=== PATIENT | female | born 1960 | race Hispanic/Latino ===

== ENCOUNTER 2017-07-11 22:14 | Observation (INO) | payer MEDICARE ==
[~2017-07-11] VITALS: Ht 162.6 cm; Wt 125.2 kg
[2017-07-11 23:13] LABS: BASOPHILS # (AUTO) 0.1 (0.0-0.1); BASOPHILS % 0.8 % (0.0-1.0); EOSINOPHILS # (AUTO) 0.4 (0.0-0.4); EOSINOPHILS % 4.2 % (0.0-6.0); HEMATOCRIT 36.8 % (34.2-44.1); HEMOGLOBIN 11.9 g/dL (12.0-16.0); LYMPHOCYTES # (AUTO) 1.8 (1.0-3.2); LYMPHOCYTES % 21.5 % (18.0-39.1); MEAN CORPUSCULAR HEMOGLOBIN 29.2 pg (28-32); MEAN CORPUSCULAR HGB CONC 32.3 g/dL (31-35); MEAN CORPUSCULAR VOLUME 90.2 fL (81-99); MONOCYTES # (AUTO) 0.5 (0.2-0.8); MONOCYTES % 5.7 % (4.4-11.3); NEUTROPHILS # (AUTO) 5.7 (2.1-6.9); NEUTROPHILS % 67.4 % (38.7-80.0); PLATELET COUNT 241 x10e3/uL (140-360); RED BLOOD COUNT 4.08 x10e6/uL (3.6-5.1)
[2017-07-11 23:27] LABS: INR 2.22; PROTHROMBIN TIME 25.8 seconds (11.9-14.5)
[2017-07-11 23:28] LABS: PARTIAL THROMBOPLASTIN TIME 42.5 seconds (23.8-35.5)
--- NOTE | 2017-07-11 23:30 | Diagnostic Imaging Report ---
EXAM: CHEST SINGLE (NOT PORTABLE), AP 1 view DATE: 07/11/2017 10:48 PM Time stamp on exam: 2313 hours INDICATION: Dialysis catheter replaced earlier today COMPARISON: There is a right internal jugular vein tunneled hemodialysis catheter with tip projected over the proximal right atrium. FINDINGS: LINES/TUBES: None LUNGS: No consolidations or edema. PLEURA: No effusions or pneumothorax. HEART AND MEDIASTINUM: Mild cardiac enlargement and vascular congestion. BONES AND SOFT TISSUES: No acute findings. IMPRESSION: Mild cardiac enlargement and vascular congestion. Signed by: Dr. Breanna Grimm M.D. on 07/11/2017 11:26 PM
[2017-07-11 23:32] LABS: ALBUMIN 3.6 g/dL (3.5-5.0); ALBUMIN/GLOBULIN RATIO 0.8 (0.8-2.0); ANION GAP 21.2 mmol/L (8-16); CALCIUM 9.9 mg/dL (8.4-10.2); CREATININE, SERUM 5.69 mg/dL (0.57-1.11); POTASSIUM 3.2 mmol/L (3.5-5.1)
[2017-07-12] MEDS ORDERED: SODIUM CHLORIDE FLUSH 10 ML SYR INJ PRN (02:45)
[2017-07-12] MEDS ORDERED: DEXTROSE 50% SYRINGE 50 ML IV PRN (04:00)
[2017-07-12 04:57] VITALS: BP 169/84
[2017-07-12 05:03] VITALS: BP 169/84
[2017-07-12] MEDS ORDERED: LEVEMIR100 UNIT/1 ×2 (05:06→05:07)
[2017-07-12] MEDS ORDERED: MONTELUKAST SOD10 MG PO (05:07)
[2017-07-12] MEDS ORDERED: SERTRALINE HCL50 MG PO (05:08)
[2017-07-12] MEDS ORDERED: TRAZODONE HCL50 MG PO (05:11)
[2017-07-12] MEDS ORDERED: COUMADIN2.5 MG PO (05:15)
[2017-07-12] MEDS ORDERED: COUMADIN2 MG PO (05:15)
[2017-07-12] MEDS ORDERED: PROVENTIL HFA6.7 GM IH (05:17)
[2017-07-12 05:18] VITALS: BP 137/78
[2017-07-12] MEDS ORDERED: AMIODARONE HCL200 MG (05:18)
[2017-07-12] MEDS ORDERED: CARVEDILOL12.5 MG PO (05:19)
[2017-07-12] MEDS ORDERED: CLOTRIMAZOLE15 GM TOP (05:20)
[2017-07-12] MEDS ORDERED: [UNRECOGNIZED DRUG - OTHER] NS (05:24)
[2017-07-12] MEDS ORDERED: SODIUM CHLORIDE 0.9% 250ML 250 ML ONE (05:46)
[2017-07-12 08:12] VITALS: BP 123/77
[2017-07-12] MEDS: INSULIN REGULAR, HUMAN 100 UNIT/1 ML 3ML VIAL SQ SCH ×2 (08:44→12:48)
--- NOTE | 2017-07-12 08:58 | Consultation ---
DATE OF CONSULTATION: July 12, 2017 NEPHROLOGY CONSULTATION REASON FOR CONSULTATION: End-stage renal disease. This is a very pleasant, 56-year-old female with hypertension, diabetes, AFib, and end-stage renal disease who started dialysis in March 2017 at [facility] when she was admitted with hyperkalemia. She then went to [facility] under Dr. Mahoney. Then she requested transfer to [place] where she now follows with Dr. Briggs. She dialyses every Friday, Friday, and Friday. Her catheter has been clotting recently. Yesterday, on Friday, on her treatment 1 hour through, she clotted, so she was referred to [facility] to get it exchanged. They exchanged the catheter. Since then, she has been bleeding from the catheter. She takes Coumadin. INR is 2.2 on admission to the ER. The patient is being under observation, and we are consulted to manage dialysis as an inpatient. PAST MEDICAL HISTORY: As mentioned above. PAST SURGICAL HISTORY 1. Status post AV fistula. 2. Status post cholecystectomy and appendectomy. ALLERGIES: CODEINE AND PIOGLITAZONE. FAMILY HISTORY: Hypertension and diabetes. SOCIAL HISTORY: No smoking, alcohol or IV drug abuse. PHYSICAL EXAMINATION VITALS: Blood pressure 137/78, heart rate 70, temperature 96.6. GENERAL APPEARANCE: In no acute distress. HEAD, EARS, EYES, NECK: No lymphadenopathy. HEART: Regular rate and rhythm. LUNGS: Good bilateral air entry. ABDOMEN: Soft, nontender. EXTREMITIES: Trace edema. LABS: Potassium was 3.2 yesterday and hemoglobin 11.9. ASSESSMENT AND PLAN 1. End-stage renal disease on hemodialysis every Friday, Friday and Friday. Yesterday's session was interrupted due to malfunctioning access. We are going to dialyze short session again today and resume Friday, Friday and Friday next week. 2. Bleeding from the tunneled catheter. Her INR was 2.2. She was still taking Coumadin on her procedure day, so she is having a pressure dressing. Also, she got 1 unit of FFP overnight at the ER. Monitor closely. It seems that the bleeding has stopped. Keep the pressure dressing. Will change the dressing by the dialysis nurse. She is under observation. 3. Anemia of chronic disease. Epogen if hemoglobin is less than 10. 4. Blood pressure is acceptable. 5. Atrial fibrillation, rate controlled. 6. Diabetes. Monitor on insulin. 7. Volume status. Adjust as tolerated. 8. Electrolytes. Adjust and increase potassium given the patient's persistent hypokalemia now being on dialysis. Potassium was 3.2 yesterday. We are going to recheck. Thank you for the consult. We will update the primary team for further recommendations. Job#: [id number]
[2017-07-12 10:35] LABS: ANION GAP 18.1 mmol/L (8-16); CALCIUM 9.1 mg/dL (8.4-10.2); CREATININE, SERUM 5.8 mg/dL (0.57-1.11); POTASSIUM 3.1 mmol/L (3.5-5.1)
[2017-07-12 12:00] VITALS: BP 150/72
[2017-07-12] MEDS ORDERED: POTASSIUM CHLORIDE 20 MEQ TAB CR PO ONE (12:00)
--- NOTE | 2017-07-12 15:42 | History and Physical ---
CHIEF COMPLAINT: Patient was admitted from the emergency room on my service because she started having bleeding from her subclavian catheter, which was recently placed. HPI: Ms. Magana is a 56-year-old female with a history of hypertension, diabetes, AFib, end-stage renal disease on dialysis since March 2017. Her regular loss control consultant is Dr. Briggs. She dialyzes every Friday, Friday and Friday. Her catheter was clotting recently, and she got it changed at [facility]. They exchanged the catheter, but the patient was taking Coumadin. INR was 2.2 on admission. The patient started having oozing and bleeding from the catheter site persistently despite pressure bandage, so she was admitted and FFP was given. REVIEW OF SYSTEMS GENERAL: Denies any fever or chills. HEAD: Denies any head trauma or head injury. ENT: Denies any earache, nosebleed or throat pain. CVS: Denies any chest pain. RESPIRATORY: Denies any shortness of breath. OTHER: The rest of the review of systems is negative except as in HPI. PAST MEDICAL HISTORY 1. Diabetes. 2. Hypertension. 3. AFib. 4. End-stage renal disease. PAST SURGICAL HISTORY 1. Status post AV fistula. 2. Cholecystectomy. 3. Appendectomy. 4. History of Chiari malformation surgery in remote past. FAMILY HISTORY: Hypertension. SOCIAL HISTORY: Does not smoke and does not drink. PHYSICAL EXAMINATION VITAL SIGNS: Temperature 96.9, pulse 70, blood pressure 150/72, respiratory rate 18, O2 sat 96% on room air. SKIN: Warm and dry. GENERAL APPEARANCE: Young female not in any obvious distress. She is awake, alert and following commands. Responding to questions appropriately. HEENT: Head is atraumatic and normocephalic. Pupils are reactive. NECK: Supple. CHEST: Clear to auscultation bilaterally. ABDOMEN: Soft, nontender. EXTREMITIES: No clubbing, cyanosis or edema. NEURO: Awake, alert. LABS: White count 8.3, hemoglobin 11.9, platelets 241. INR is 2.22. Chemistry: Sodium 139, potassium 3.91, chloride 95, BUN 59, creatinine 5.8. Chest x-ray was done in the emergency room, which is showing mild cardiac enlargement but no other abnormality. ASSESSMENT/PLAN: Carmen Magana is a 56-year-old female who had dialysis catheter site bleeding. Patient has been stable. Bleeding has stopped. She has received a unit of fresh frozen plasma. CURRENT PROBLEMS 1. Bleeding from the dialysis catheter site. 2. End-stage renal disease. 3. Hypertension. 4. Diabetes. PLAN 1. Bleeding has stopped. I will discharge the patient if okay with nephrology. 2. Hemodialysis per nephrology. 3. Nephrology consult. Job#: [id number]
== END 2017-07-12 15:47 | disposition home or self-care (01) ==
LOC: ER 22:14 → ERHOLD 07-12 02:54 → IMCU 07-12 04:06
PROVIDERS: ADMIT Internal Medicine; ATTEND Internal Medicine
DX: T82.838A Hemorrhage due to vascular prosthetic devices, implants and grafts, initial encounter (principal); Y84.1 Kidney dialysis as the cause of abnormal reaction of the patient, or of later complication, without mention of misadventure at the time of the procedure; Y92.009 Unspecified place in unspecified non-institutional (private) residence as the place of occurrence of the external cause; E11.22 Type 2 diabetes mellitus with diabetic chronic kidney disease; I12.0 Hypertensive chronic kidney disease with stage 5 chronic kidney disease or end stage renal disease; N18.6 End stage renal disease; Z79.4 Long term (current) use of insulin; Z99.2 Dependence on renal dialysis; D63.8 Anemia in other chronic diseases classified elsewhere; E87.6 Hypokalemia; I48.91 Unspecified atrial fibrillation; Z79.01 Long term (current) use of anticoagulants
CPT/HCPCS: 36415 ×2; 36430; 71010; 80048; 80053; 82948; 85025; 85610; 85730; 86850; 86900; 99284; G0378; J7050; P9017

== ENCOUNTER 2017-08-29 11:00 | Emergency (ER) | payer MEDICARE ==
[~2017-08-29] VITALS: Ht 162.6 cm; Wt 124.7 kg
[~2017-08-29 11:00] MED LIST: AMIODARONE HCL200 MG; CARVEDILOL12.5 MG PO; CLOTRIMAZOLE15 GM TOP; COUMADIN2 MG PO; COUMADIN2.5 MG PO; LEVEMIR100 UNIT/1; MONTELUKAST SOD10 MG PO; PROVENTIL HFA6.7 GM IH; SERTRALINE HCL50 MG PO; TRAZODONE HCL50 MG PO; [UNRECOGNIZED DRUG - OTHER] NS
--- OUTSIDE RECORDS SUMMARY | 2017-08-29 11:02 | XMS REPORT ---
Author Author [facility] Address Unknown Phone Unavailable Care Team Providers Care Registered Sales Assistant Name Role Phone PARAM MENA Unavailable Unavailable Problems This patient has no known problems. Allergies, Adverse Reactions, Alerts This patient has no known allergies or adverse reactions. Medications This patient has no known medications. Results Test Description Test Time Test Comments Text Results Atomic Results Result Comments CHEST SINGLE (NOT PORTABLE) [place] [id number] Patient Name: RENETTA MEDINA MR #: [id number] : 1960 Age/Sex: 56/F Req #: [id number] Adm Physician: Ordered by: PARAM MENA MD Report #: [id number] Location: ER Room/Bed: Procedure: [id number] DX/CHEST SINGLE (NOT PORTABLE) Exam Date: 07/11/17 Exam Time: 2305 REPORT STATUS: Signed EXAM: CHEST SINGLE (NOT PORTABLE), AP 1 view DATE: 07/11/2017 10:48 PM Time stamp on exam : 2313 hours INDICATION: Dialysis catheter replaced earlier today COMPARISON : There is a right internal jugular vein tunneled hemodialysis catheter with tip projected over the proximal right atrium. FINDINGS: LINES/TUBES: None LUNGS: No consolidations or edema. PLEURA: No effusions or pneumothorax. HEART AND MEDIASTINUM: Mild cardiac enlargement and vascular congestion. BONES AND SOFT TISSUES: No acute findings. IMPRESSION: Mild cardiac enlargement and vascular congestion. Signed by: Dr. April Murphy M.D. on 07/11/2017 11:26 PM Dictated By: APRIL MURPHY MD 25 Transcribed By: BRITTON on 07/11/172325 COPY TO: PARAM MENA MD
[2017-08-29 13:01] LABS: BASOPHILS # (AUTO) 0.1 (0.0-0.1); BASOPHILS % 0.7 % (0.0-1.0); EOSINOPHILS # (AUTO) 0.3 (0.0-0.4); EOSINOPHILS % 3.6 % (0.0-6.0); HEMOGLOBIN 10.7 g/dL (12.0-16.0); LYMPHOCYTES # (AUTO) 1.3 (1.0-3.2); MEAN CORPUSCULAR HGB CONC 32.4 g/dL (31-35); MEAN CORPUSCULAR VOLUME 89.4 fL (81-99); MONOCYTES # (AUTO) 0.5 (0.2-0.8); NEUTROPHILS # (AUTO) 6.2 (2.1-6.9); NEUTROPHILS % 73.5 % (38.7-80.0); PLATELET COUNT 227 x10e3/uL (140-360); RED BLOOD COUNT 3.69 x10e6/uL (3.6-5.1); RED CELL DISTRIBUTION WIDTH 14.5 % (11.7-14.4)
[2017-08-29 13:09] LABS: INR 2.63; PROTHROMBIN TIME 26.4 seconds (11.9-14.5)
[2017-08-29 13:10] LABS: PARTIAL THROMBOPLASTIN TIME 53.7 seconds (23.8-35.5)
[2017-08-29 13:21] LABS: ALBUMIN 3.3 g/dL (3.5-5.0); ALBUMIN/GLOBULIN RATIO 0.8 (0.8-2.0); ANION GAP 19.5 mmol/L (8-16); CALCIUM 8.8 mg/dL (8.4-10.2); CREATININE, SERUM 6.81 mg/dL (0.57-1.11); POTASSIUM 3.5 mmol/L (3.5-5.1)
[2017-08-29 13:46] VITALS: BP 190/82
== END 2017-08-29 13:55 | disposition home or self-care (01) ==
LOC: ER 11:00
DX: D68.9 Coagulation defect, unspecified (principal); I12.0 Hypertensive chronic kidney disease with stage 5 chronic kidney disease or end stage renal disease; N18.6 End stage renal disease; Z99.2 Dependence on renal dialysis; I51.9 Heart disease, unspecified
CPT/HCPCS: 36415; 80053; 85025; 85610; 85730; 99283

== ENCOUNTER → 2018-03-17 | Day surgery (SDC) | payer MEDICARE, OTHER ==
[~2018-03-17] VITALS: Ht 162.6 cm; Wt 122.5 kg
[~2018-03-17] MED LIST changes: +ACETAMINOPHEN325 M1 PO; -AMIODARONE HCL200 MG; +AMIODARONE HCL200 MG PO; +ATORVASTATIN CA20 MG PO; +BENZOCAINE 20% SPR 60 ML CAN ONE; -LEVEMIR100 UNIT/1; +LEVEMIR100 UNIT/1 SQ; +LIDOCAINE HCL 2% LOCAL INJ 5 ML SDV VIAL INJ ONE; +MIDAZOLAM HCL 2 MG/2 ML VIAL ONE; +NEPHRO-VITE TABL1 EA PO; +POLYETHYLENE GL17 GM PO; +PROPOFOL IV EMULSION 10 MG/ML 20 ML VIAL ONE; +RENVELA PO; +RENVELA800 MG PO; +SODIUM CHLORIDE 0.9% 1000ML 1,000 ML ONE
[2018-03-17 09:15] VITALS: BP 150/80
[2018-03-17 11:15] VITALS: BP 142/79
[2018-03-17 11:30] VITALS: BP 142/85
[2018-03-17 11:45] VITALS: BP 159/77
[2018-03-17 12:00] VITALS: BP 152/77
== END | disposition home or self-care (01) ==
LOC: CATH LAB 08:45 → EDSTATUS 10:30
PROVIDERS: ATTEND Internal Medicine Interventional Cardiology
DX: I48.2 Chronic atrial fibrillation (principal); E11.22 Type 2 diabetes mellitus with diabetic chronic kidney disease; I12.0 Hypertensive chronic kidney disease with stage 5 chronic kidney disease or end stage renal disease; N18.6 End stage renal disease; J44.9 Chronic obstructive pulmonary disease, unspecified; G47.33 Obstructive sleep apnea (adult) (pediatric); R53.1 Weakness; Z88.6 Allergy status to analgesic agent; Z88.8 Allergy status to other drugs, medicaments and biological substances; Z79.01 Long term (current) use of anticoagulants; Z79.4 Long term (current) use of insulin; Z99.2 Dependence on renal dialysis; Z68.42 Body mass index [BMI] 45.0-49.9, adult
CPT/HCPCS: 36415; 82948; 93312; 93320; 93325; J2001; J2250; J7030

== ENCOUNTER 2018-09-05 17:30 | Inpatient (IN) | payer MEDICARE, OTHER ==
[~2018-09-05] VITALS: Ht 162.6 cm; Wt 108.9 kg
[~2018-09-05 17:30] MED LIST changes: -BENZOCAINE 20% SPR 60 ML CAN ONE; -LIDOCAINE HCL 2% LOCAL INJ 5 ML SDV VIAL INJ ONE; -MIDAZOLAM HCL 2 MG/2 ML VIAL ONE; -PROPOFOL IV EMULSION 10 MG/ML 20 ML VIAL ONE; -SODIUM CHLORIDE 0.9% 1000ML 1,000 ML ONE
[2018-09-05] MEDS ORDERED: SODIUM CHLORIDE 0.9% 250ML 250 ML IV ONE (17:45)
[2018-09-05] MEDS ORDERED: VANCOMYCIN 1GM/NS 250 ML 250 ML IV STA (17:47)
[2018-09-05] MEDS ORDERED: CEFEPIME 2 GM/NS 0.9% 100 ML 100 ML IV NR (18:00)
--- NOTE | 2018-09-05 18:30 | NUR ---
REC'D PT VIA EMS FROM [facility] FOR MULTIPLE COMPLAINTS. RIGHT CHEST DIALYSIS PORT RECENTLY PLACED AND HAS HAD FEVER, STOUT, BACK PAIN SINCE. WOUND TO SACRUM--UNSTAGEABLE WITH TUNNELING/PACKING. PLACED ON THE MONITOR. EKG DONE. BED LOW/LOCKED AND HAS CALL CRUZ IN HAND.
--- NOTE | 2018-09-05 18:51 | Diagnostic Imaging Report ---
EXAMINATION: CHEST SINGLE (PORTABLE) COMPARISON: Chest x-ray 07/11/2017 INDICATION: ^FEVER ^[id number] ^1820 DISCUSSION: Frontal view of the chest obtained at 1822 hours. HEART AND MEDIASTINUM: Stable cardiomegaly. Prosthetic cardiac valve ring has been applied. LINES: Dual lumen central venous catheter terminates in the SVC LUNGS: Widespread alveolar airspace opacities with prominent pulmonary vasculature. Minimal interstitial thickening. PLEURA: Small left pleural effusion. No pneumothorax. BONES AND SOFT TISSUES: Median sternotomy wires are intact. No focal osseous lesion. The soft tissues are normal. IMPRESSION: Cardiomegaly and pulmonary vascular congestion with alveolar edema. Small left pleural effusion. Postoperative changes of the mediastinum with placement of cardiac valve. Signed by: Dr. Fabby Sim MD on 09/05/2018 6:48 PM
[2018-09-05] MEDS ORDERED: DILTIAZEM HCL 5 MG/ML 5 ML VIAL IV NR (18:52)
[2018-09-05 20:02] LABS: BASOPHILS # (AUTO) 0.1 (0.0-0.1); BASOPHILS % 0.5 % (0.0-1.0); EOSINOPHILS # (AUTO) 0.1 (0.0-0.4); EOSINOPHILS % 0.7 % (0.0-6.0); HEMATOCRIT 31.1 % (34.2-44.1); HEMOGLOBIN 9.1 g/dL (12.0-16.0); LYMPHOCYTES # (AUTO) 1.2 (1.0-3.2); LYMPHOCYTES % 11.7 % (18.0-39.1); MEAN CORPUSCULAR HEMOGLOBIN 29.1 pg (28-32); MEAN CORPUSCULAR HGB CONC 29.3 g/dL (31-35); MEAN CORPUSCULAR VOLUME 99.4 fL (81-99); MONOCYTES # (AUTO) 0.5 (0.2-0.8); MONOCYTES % 4.7 % (4.4-11.3); NEUTROPHILS # (AUTO) 8.6 (2.1-6.9); NEUTROPHILS % 82.1 % (38.7-80.0); PLATELET COUNT 219 x10e3/uL (140-360); RED BLOOD COUNT 3.13 x10e6/uL (3.6-5.1); RED CELL DISTRIBUTION WIDTH 18.4 % (11.7-14.4)
[2018-09-05 20:14] LABS: INR 1.4; PROTHROMBIN TIME 17.7 seconds (11.9-14.5)
[2018-09-05 20:15] LABS: PARTIAL THROMBOPLASTIN TIME 43.9 seconds (23.8-35.5)
[2018-09-05 20:28] LABS: ALBUMIN 2.6 g/dL (3.5-5.0); ALBUMIN/GLOBULIN RATIO 0.6 (0.8-2.0); ANION GAP 15.8 mmol/L (8-16); CALCIUM 9.8 mg/dL (8.4-10.2); CREATININE, SERUM 5.9 mg/dL (0.57-1.11); MAGNESIUM 1.8 MG/DL (1.3-2.1); POTASSIUM 3.8 mmol/L (3.5-5.1)
[2018-09-05 20:30] LABS: CREATINE KINASE MB 0.4 ng/mL (0-5.0)
[2018-09-05 20:33] LABS: B-TYPE NATRIURETIC PEPTIDE2 515.7 pg/mL (0-100)
[2018-09-05] MEDS ORDERED: METOPROLOL TART25 MG PO (22:05)
[2018-09-05] MEDS ORDERED: CYCLOBENZAPRINE5 MG PO (22:05)
[2018-09-05] MEDS ORDERED: COLLAGENASE1 EACH (22:05)
[2018-09-05] MEDS ORDERED: PANTOPRAZOLE SO40 MG PO (22:05)
[2018-09-05] MEDS ORDERED: ZOFRAN4 MG PO (22:05)
[2018-09-05] MEDS ORDERED: SERTRALINE HCL100 MG PO (22:05)
[2018-09-05] MEDS ORDERED: MIDODRINE HCL2.5 MG PO (22:05)
[2018-09-05] MEDS ORDERED: ULTRAM50 MG PO (22:05)
--- NOTE | 2018-09-05 22:11 | NUR ---
HOME MEDS UPDATED IN THE COMPUTER
--- NOTE | 2018-09-05 22:45 | NUR ---
PT LOVE. INFORMED, UA/UC CANCELLED.
--- NOTE | 2018-09-05 22:59 | NUR ---
PT MOVED TO HOSPITAL BEDFOR COMFORT. PT REPOSITIONED ONTO R SIDE. Addendum: 09/05/18 at 2259 by PARUL PT MOVED TO HOSPITAL BED FOR COMFORT. PT REPOSITIONED ONTO R SIDE.
[2018-09-05] MEDS: TRAMADOL HCL 50 MG TAB PO PRN (23:07)
--- NOTE | 2018-09-06 00:15 | NUR ---
TO ROOM TO PERFORM MN VS. PT NOTED C FEVER. BLANKET REMOVED. DR AMEZCUA INFORMED OF FEVER 101.3 ORALLY. TYLENOL ORDERED.
[2018-09-06] MEDS: ACETAMINOPHEN 325 MG TAB PO PRN ×3 (00:31→21:14)
[2018-09-06] MEDS: AMIODARONE HCL 200 MG TAB PO SCH ×2 (03:14→08:41)
[2018-09-06] MEDS ORDERED: AMIODARONE HCL 200 MG TAB PO ONE (03:15)
[2018-09-06] MEDS ORDERED: CEFEPIME 2 GM/NS 0.9% 100 ML 100 ML IV SCH ×2 (04:15→20:30)
[2018-09-06] MEDS ORDERED: VANCOMYCIN 1GM/NS 250 ML 250 ML IV SCH ×2 (04:15→21:00)
[2018-09-06 06:08] LABS: BASOPHILS % 0.5 % (0.0-1.0); EOSINOPHILS # (AUTO) 0.1 (0.0-0.4); EOSINOPHILS % 1.1 % (0.0-6.0); HEMATOCRIT 28.5 % (34.2-44.1); HEMOGLOBIN 8.5 g/dL (12.0-16.0); LYMPHOCYTES # (AUTO) 1.1 (1.0-3.2); LYMPHOCYTES % 12.4 % (18.0-39.1); MEAN CORPUSCULAR HEMOGLOBIN 29.4 pg (28-32); MEAN CORPUSCULAR HGB CONC 29.8 g/dL (31-35); MEAN CORPUSCULAR VOLUME 98.6 fL (81-99); MONOCYTES # (AUTO) 0.4 (0.2-0.8); MONOCYTES % 4.1 % (4.4-11.3); NEUTROPHILS # (AUTO) 7.1 (2.1-6.9); NEUTROPHILS % 81.4 % (38.7-80.0); PLATELET COUNT 191 x10e3/uL (140-360); RED BLOOD COUNT 2.89 x10e6/uL (3.6-5.1); RED CELL DISTRIBUTION WIDTH 18.2 % (11.7-14.4)
[2018-09-06 06:28] LABS: ALBUMIN 2.4 g/dL (3.5-5.0); ALBUMIN/GLOBULIN RATIO 0.6 (0.8-2.0); ANION GAP 13.6 mmol/L (8-16); CALCIUM 9.5 mg/dL (8.4-10.2); CREATININE, SERUM 6.46 mg/dL (0.57-1.11); POTASSIUM 3.6 mmol/L (3.5-5.1)
--- NOTE | 2018-09-06 07:15 | NUR ---
ASSUMED CARE AT THIS TIME. PATIENT LAYING IN BED WITH EYES CLOSED,EASILY ARROUSABLE TO VERBAL STIMULI. RESP EVEN AND UNLABORED. SKIN WARM AND DRY. NO SIGNS OF ACUTE DISTRESS NOTED AT THIS TIME. DENIES ANY C/O AT THIS TIME.
[2018-09-06] MEDS: TRAMADOL HCL 50 MG TAB PO PRN ×2 (08:41→21:29)
[2018-09-06] MEDS ORDERED: METOPROLOL TARTRATE 25 MG TAB PO SCH (09:00)
--- NOTE | 2018-09-06 09:40 | NUR ---
PATIENT REPOSITIONED TO RIGHT LATERAL, TOLERATED WELL. BLANKETS REMOVED, C/O FLUSHING, SKIN HOT AND DRY. T 101.9,EDUCATED PATIENT ON TYLENOL SCHEDULE,VERBALIZED UNDERSTANDING. NO SIGNS OF ACUTE DISTRESS NOTED AT THIS TIME.
--- NOTE | 2018-09-06 11:23 | NUR ---
VERBAL REPORT GIVEN TO GLENN HAWKINS.
[2018-09-06] MEDS ORDERED: METOPROLOL TARTRATE INJ 1 MG/ML VIAL IV PRN (12:15)
[2018-09-06] MEDS ORDERED: DEXTROSE 50% SYRINGE 50 ML IV PRN (12:15)
[2018-09-06] MEDS ORDERED: ACETAMINOPHEN 325 MG TAB PO PRN (12:15)
[2018-09-06] MEDS: WARFARIN SOD 3 MG TAB PO SCH (16:53)
[2018-09-06] MEDS: METOPROLOL TARTRATE 25 MG TAB PO SCH (16:53)
[2018-09-06] MEDS: SEVELAMER CARBONATE 800 MG TAB PO SCH (16:53)
[2018-09-06] MEDS: INSULIN REGULAR, HUMAN 100 UNIT/1 ML 3ML VIAL SQ SCH ×2 (17:22→21:00)
[2018-09-06 19:57] VITALS: BP 97/60
[2018-09-06] MEDS ORDERED: SODIUM CHLORIDE 0.9% 250ML 250 ML ONE (20:13)
[2018-09-06 20:14] VITALS: BP 97/60
[2018-09-06] MEDS: ATORVASTATIN 40 MG TAB PO SCH (21:15)
[2018-09-06] MEDS: MONTELUKAST SODIUM 10 MG TAB PO SCH (21:15)
--- NOTE | 2018-09-06 22:41 | NUR ---
FELICE CALLED TO PLACE PATIENT ON HEMODIALYSIS FOR FRIDAY.
[2018-09-07] VITALS: BP 123/57
--- NOTE | 2018-09-07 02:51 | Consultation ---
DATE OF CONSULTATION: 09/06/2018 Pulmonary Critical Care Consultation CHIEF COMPLAINT: Fever. HISTORY OF PRESENT ILLNESS: The patient is a 57-year-old woman. She has a history of diabetes and hypertension. She has end-stage renal failure and has been on dialysis for about a year. In March of last year, she required hospitalization for 2-1/2 months for methicillin-resistant Staphylococcus aureus endocarditis. She required open heart surgery and prolonged antibiotics. The patient has been staying at a nursing facility. She had her dialysis catheter changed on . She subsequently developed fevers. She denies any cough or congestion. She has no dyspnea. She denies abdominal pain. No nausea or vomiting. PAST SURGICAL HISTORY: 1. Status post repair of Chiari malformation 10 years ago. 2. Status post heart surgery for endocarditis. 3. Status post AV fistula placement. 4. Status post cholecystectomy. 5. Status post appendectomy. PAST MEDICAL HISTORY: 1. End-stage renal disease. 2. Diabetes. 3. Hypertension. 4. Atrial fibrillation. SOCIAL HISTORY: The patient is not a smoker. She is not a drinker. FAMILY HISTORY: Family history is significant for hypertension. ALLERGIES: THE PATIENT IS ALLERGIC TO CODEINE. REVIEW OF SYSTEMS: The patient reports fevers at home. She has no headache. She is not having any neck pain. She has no sore throat. She is not complaining of chest pain. She has minimal cough. She has no dyspnea. She is not complaining of any abdominal pain. There is no nausea or vomiting. She has no leg edema. PHYSICAL EXAMINATION: VITAL SIGNS: The patient is afebrile. The blood pressure is 103/54 and the heart rate is 112. The T-max is 101.9. HEENT: Shows no facial swelling or erythema. Nasal mucosa is normal. The oropharynx is normal. LYMPHATIC: Shows no submandibular, cervical, or supraclavicular adenopathy. CARDIAC: Reveals regular rate and rhythm with normal S1 and S2. There are no murmurs or rubs. LUNGS: Auscultation of lungs reveal clear breath sounds bilaterally. There is no wheezing. ABDOMEN: Soft, nontender. There is no rebound or guarding. EXTREMITIES: Examination of extremities show no leg edema or calf tenderness. LABORATORY DATA: The white blood cell count is 8.7 and hemoglobin is 8.5. The platelet count is 191. The BUN to creatinine ratio is elevated. The sodium is 129. IMPRESSION: 1. Fever of unclear etiology. 2. History of methicillin-resistant Staphylococcus aureus endocarditis. 3. End-stage renal disease. 4. Atrial fibrillation. 5. Diabetes. 6. Hypertension. PLAN: 1. The patient received vancomycin. She is also receiving ceftazidime. 2. Await blood culture results. 3. Nasal swab for influenza. 4. Nasal swab for MRSA. 5. Continue dialysis as needed. Manan Wallace MD [facility]/MOD[facility] /[id number]
[2018-09-07 04:17] VITALS: BP 122/60
[2018-09-07 06:58] LABS: BASOPHILS # (AUTO) 0.1 (0.0-0.1); BASOPHILS % 0.6 % (0.0-1.0); EOSINOPHILS # (AUTO) 0.4 (0.0-0.4); EOSINOPHILS % 4.5 % (0.0-6.0); HEMATOCRIT 27.8 % (34.2-44.1); HEMOGLOBIN 8.3 g/dL (12.0-16.0); LYMPHOCYTES # (AUTO) 0.9 (1.0-3.2); LYMPHOCYTES % 10.5 % (18.0-39.1); MEAN CORPUSCULAR HEMOGLOBIN 29.1 pg (28-32); MEAN CORPUSCULAR HGB CONC 29.9 g/dL (31-35); MEAN CORPUSCULAR VOLUME 97.5 fL (81-99); MONOCYTES # (AUTO) 0.4 (0.2-0.8); MONOCYTES % 5.1 % (4.4-11.3); NEUTROPHILS # (AUTO) 6.5 (2.1-6.9); NEUTROPHILS % 79.1 % (38.7-80.0); PLATELET COUNT 191 x10e3/uL (140-360); RED BLOOD COUNT 2.85 x10e6/uL (3.6-5.1); RED CELL DISTRIBUTION WIDTH 17.7 % (11.7-14.4)
[2018-09-07 07:15] LABS: INR 1.57; PROTHROMBIN TIME 19.4 seconds (11.9-14.5)
[2018-09-07 07:19] LABS: ANION GAP 18.4 mmol/L (8-16); CALCIUM 9.7 mg/dL (8.4-10.2); CREATININE, SERUM 7.85 mg/dL (0.57-1.11); POTASSIUM 4.4 mmol/L (3.5-5.1)
[2018-09-07] MEDS: INSULIN REGULAR, HUMAN 100 UNIT/1 ML 3ML VIAL SQ SCH ×4 (07:30→22:09)
[2018-09-07 07:45] LABS: THYROID STIMULATING HORMONE 3.552 uIU/mL (0.350-4.940)
[2018-09-07 07:55] VITALS: BP 103/62
[2018-09-07 08:00] VITALS: BP 103/62
[2018-09-07] MEDS: POLYETHYLENE GLYCOL 3350 17 GM PACK PO SCH (09:00)
[2018-09-07] MEDS ORDERED: SERTRALINE HCL 50 MG TAB PO SCH (09:00)
[2018-09-07] MEDS: METOPROLOL TARTRATE 25 MG TAB PO SCH ×2 (09:00→18:14)
[2018-09-07] MEDS: PANTOPRAZOLE SOD 40 MG TABEC PO SCH (09:14)
[2018-09-07] MEDS: SEVELAMER CARBONATE 800 MG TAB PO SCH ×3 (09:15→18:14)
[2018-09-07] MEDS: AMIODARONE HCL 200 MG TAB PO SCH (09:15)
[2018-09-07] MEDS: FOLIC ACID/CYANOCOB/PYRIDOXINE TAB PO SCH (09:16)
[2018-09-07] MEDS: TRAMADOL HCL 50 MG TAB PO PRN ×2 (09:23→18:15)
[2018-09-07] MEDS ORDERED: SODIUM CHLORIDE 0.9% 250ML 500 ML IV PRN (13:45)
[2018-09-07] MEDS ORDERED: SODIUM CHLORIDE 0.9% 1000ML 2,000 ML IV PRN (13:45)
[2018-09-07] MEDS ORDERED: HEPARIN SOD (PORCINE) 1000 UNIT/ML SDV IV PRN (13:45)
--- NOTE | 2018-09-07 14:45 | NUR ---
CM SPOKE TO PATIENT AT BEDSIDE REGARDING IMM LETTER. IMM LETTER GIVEN WITH EXPLANATION. ORIGINAL SIGNED AND PLACED IN CHART; COPY OF ORIGINAL DOCUMENT GIVEN TO PATIENT AT BEDSIDE AND PLACED IN CARE TRANSITION FOLDER. CM CONTACT INFORMATION GIVEN TO PATIENT FOR ANY NEEDS OR CONCERNS. PATIENT WITH NO FURTHER QUESTIONS.
[2018-09-07 16:00] VITALS: BP 119/63
--- NOTE | 2018-09-07 16:30 | NUR ---
WOUND CARE CONSULTATION - INITIAL EVALUATION Patient admitted from correction to ER for onset of fever. SX HX: Chiari malformation Repair, Heart surgery for endocarditis, AV fistula placement, cholecystectomy, appendectomy. HX: End-stage renal disease, Diabetes, Hypertension, Atrial fibrillation. Urban Score 18 Alternate Pressure Air Mattress in Place Moderate PUP Active. LABS: WBC8.19 HGB8.3 NEUT%79.1 GLU97 HbA1c5.7 ALB0.6 Wound Care consulted for Ulcer evaluation of Sacral Area. PATIENT VISIT: PATIENT UNDERGOING HD AT TIME OF VISIT AND UNABLE TO ASSESS> WILL FOLLOW UP IN AM FOR ASSESSMENT AND RECOMMENDATION. Addendum: 09/07/18 at 1640 by Beka Fajardo RN Amended: Links added.
[2018-09-07] MEDS: WARFARIN SOD 3 MG TAB PO SCH (17:00)
--- NOTE | 2018-09-07 17:00 | NUR ---
Received call from radiology department and wetlands conservation laborer regarding tunnelled catheter removal and replacement. Was told that pt is tentatively scheduled for fri around 1200. PT was told that pt's coumadin must be held. Spoke with Dr. Mark and states it is ok to hold coumadin in prep for procedure. Spoke with dialysis nurse that pt should be on first shift on friday.
--- NOTE | 2018-09-07 17:30 | NUR ---
Dialysis completed at this time. 3.5L removed during this treatment.
[2018-09-07] MEDS: MIDODRINE 2.5 MG TAB PO PRN (17:45)
[2018-09-07] MEDS: EPOETIN ALFA 10000 UNIT/ML VIAL SC SCH (18:13)
--- NOTE | 2018-09-07 18:19 | Consultation ---
DATE OF CONSULTATION: 09/07/2018 Cardiology Consultation HISTORY OF PRESENT ILLNESS: This is a 57-year-old woman with history of end-stage renal disease on hemodialysis, history of MRSA endocarditis status post valve replacement at [facility], diabetes mellitus, hypertension, and atrial fibrillation status post Watchman, who presented from her rehabilitation [facility] due to recurrent fever and chills. She states that when she gets her chills she knows that she has a fever and she was noted to have a fever of 101. She otherwise has severe peripheral arterial disease with gangrene of the left foot in addition to a pressure ulcer on her buttocks. Here, the patient was found to have blood cultures growing Staphylococcus aureus and a maximal temperature of 101.9 on September 06. REVIEW OF SYSTEMS: Twelve-point review of system was conducted, is negative otherwise as stated above in the HPI. PAST MEDICAL HISTORY: As stated above in the HPI. PAST SURGICAL HISTORY: Valve replacement and fistula placement. FAMILY HISTORY: No premature coronary artery disease. ALLERGIES: CODEINE AND PIOGLITAZONE. MEDICATIONS: See medication reconciliation form. SOCIAL HISTORY: No illicit drug use, alcohol use, or tobacco use. OBJECTIVE: VITAL SIGNS: Temperature is 97.5, heart rate is 74, respirations are 18, blood pressure is 103/62, and oxygen saturation 97% on room air. GENERAL: She is a chronically ill-appearing woman, seated at bedside. HEENT: Head is normocephalic, atraumatic. Eyes, the extraocular muscles are intact. Throat is clear. NECK: No JVD. No bruits. CARDIOVASCULAR: She has a regular rate, crisp mechanical valve sounds. No murmurs. LUNGS: Clear to auscultation. ABDOMEN: Soft, nontender. EXTREMITIES: DICTATION ENDS HERE. Ariel Dumont DO [facility]/TYREEL /[id number]
--- NOTE | 2018-09-07 18:35 | Consultation ---
DATE OF CONSULTATION: 09/07/2018 CONTINUATION: NEUROLOGIC: Cranial nerves are grossly intact. PSYCHIATRIC: Normal mood and affect. LABORATORY DATA: All laboratory data reviewed. Hemoglobin 8.3, platelets 191. Creatinine 7.85. INR is subtherapeutic at 1.57. IMPRESSION: 1. History of methicillin-resistant Staphylococcus aureus endocarditis, status post mechanical valve replacement. 2. Paroxysmal atrial fibrillation, status post Watchman placement. 3. End-stage renal disease. 4. Hypertension. 5. Hyperlipidemia. 6. Subtherapeutic INR. 7. Methicillin-resistant Staphylococcus aureus bacteremia. 8. Fever. RECOMMENDATIONS: Continue antibiotics per primary team. We will check a transthoracic echocardiogram, however, the patient will likely require transesophageal echocardiography. Local wound care for pressure wound and lower extremity gangrene. We would recommend starting heparin given subtherapeutic INR with a metallic valve. We will continue to monitor closely with you. DO LAURA Cordova/TYREEL /[id number]
--- NOTE | 2018-09-07 19:05 | NUR ---
Patient visited in room during nursing rounds. Patient alert and oriented x3. Patient up to use wheelchair and into the bathroom prn. Patient is anuric and dialysis patient. Stage 4 to sacrum and covered with Allevyn dressing. Left heel with small healing ulcer covered with allevyn dressing. Call bray within reach. Will monitor closely.
[2018-09-07] MEDS ORDERED: VANCOMYCIN 1GM/NS 250 ML 250 ML IV SCH (19:15)
[2018-09-07 20:00] VITALS: BP 138/68
[2018-09-07] MEDS: SERTRALINE HCL 50 MG TAB PO SCH (20:28)
[2018-09-07] MEDS: MONTELUKAST SODIUM 10 MG TAB PO SCH (20:28)
[2018-09-07] MEDS: ATORVASTATIN 40 MG TAB PO SCH (20:28)
--- NOTE | 2018-09-07 21:10 | NUR ---
Patient went down to radiology dept for CT of chest and CT of abdomen/pelvis per MD order.
[2018-09-07] MEDS ORDERED: MORPHINE SULFATE 2 MG/ML SYR 1ML IV PRN (21:15)
--- NOTE | 2018-09-07 21:31 | Progress Note ---
DATE: 09/07/2018 Critical Care Progress Note. SUBJECTIVE: The patient's blood cultures are growing out Staph aureus. She had an echocardiogram today, that is also still pending. She is scheduled to have her dialysis catheter removed. PHYSICAL EXAMINATION: VITAL SIGNS: The blood pressure is 119/63 and the pulse is 74. The saturation is 92% on 3 L. HEENT: Shows no facial swelling or erythema. The nasal mucosa is normal. The oropharynx is normal. LYMPHATIC: Shows no submandibular, cervical, or supraclavicular adenopathy. CARDIAC: Reveals regular rate and rhythm with normal S1 and S2. There are no murmurs or rubs heard. CHEST: Auscultation of the lungs shows clear breath sounds bilaterally. There is no wheezing. ABDOMEN: Soft, nontender. There is no rebound or guarding. IMPRESSION: 1. Staphylococcus aureus bacteremia with sepsis, present on admission. 2. End-stage renal disease. 3. Diabetes. 4. Atrial fibrillation. 5. History of endocarditis. PLAN: 1. The patient had a KARIN and is being evaluated for recurrent endocarditis. 2. Dialysis catheter will be removed, and if necessary, a new one will be placed. 3. Continue antibiotics. 4. Continue dialysis as needed. MD CURTIS Frey/ROSALINE /[id number]
--- NOTE | 2018-09-07 21:43 | NUR ---
Called Leo Clayton (CLOTH WASHER) and informed Ultram (according to pt) has not been helping much with her pain on left heel and left big toe. Mr. Clayton ordered Morphine 2mg IV Q4hr prn and [place] 7.5/325mg PO Q6hr prn.
[2018-09-07] MEDS ORDERED: MORPHINE SULFATE INJ 4 MG/ML INJ 1ML IV PRN (21:45)
--- NOTE | 2018-09-07 22:29 | Diagnostic Imaging Report ---
EXAM: CT Chest, Abdomen and Pelvis WITHOUT contrast INDICATION: Sepsis. Rule out abscess. COMPARISON: None. TECHNIQUE: Chest, abdomen and pelvis were scanned utilizing a multidetector helical scanner from the lung apex to the pubic symphysis without administration of IV contrast. Absence of intravenous contrast decreases sensitivity for detection of focal lesions and vascular pathology. Coronal and sagittal reformations were obtained. Routine protocol was performed. IV CONTRAST: None. ORAL CONTRAST: Water RADIATION DOSE: Total DLP: 1035.12 mGy*cm Estimated effective dose: (DLP x 0.015 x size factor) mSv COMPLICATIONS: None FINDINGS: LINES and TUBES: Right sided central venous catheter with distal tip within the cavoatrial junction. Mitral valve prosthesis. LUNGS AND AIRWAYS: Irregular densities in the lung bases suggestive of subsegmental atelectasis, left greater than right. Mild bilateral interstitial edema. Right middle lobe atelectasis versus scarring. PLEURA: Trace bilateral pleural effusions, left greater than right. HEART AND MEDIASTINUM: The thyroid gland is normal. Numbers mildly prominent lymph nodes scattered throughout the mediastinum the largest in the precarinal location measuring 1.2 cm in short axis on image 23 series 3. Stranding of the anterior mediastinum likely related to CABG changes. Trace volume of pericardial fluid and along the right atrium dense surgical material with a small fluid collection measuring 3.6 x 3.7 x 2.1 cm in maximal coronal, AP and transverse dimensions on axial image 37 series 2 and coronal image 57. The heart is normal in size.. There is a trace pericardial effusion. There are mild atherosclerotic calcifications in the aorta and coronary arteries. HEPATOBILIARY: No focal hepatic lesions. No biliary ductal dilation. GALLBLADDER: Status post cholecystectomy. SPLEEN: No splenomegaly. PANCREAS: No focal masses or ductal dilatation. ADRENALS: No adrenal nodules KIDNEYS/URETERS: Bilateral atrophy. No hydronephrosis. 80 mm lesion exophytic of the anterior lower pole of the left kidney on image 83 series 2 is too small to be characterized. Renal artery calcifications. No stones. GI TRACT: No abnormal distention, wall thickening, or evidence of bowel obstruction. There are a few diverticula in the sigmoid colon without evidence of diverticulitis. Appendix is normal. PELVIC ORGANS/BLADDER: Uterine artery calcifications. No adnexal masses. LYMPH NODES: No lymphadenopathy. VESSELS: There is mild atherosclerotic disease in the aorta and major arterial branches. PERITONEUM / RETROPERITONEUM: No free air or fluid. BONES: There are degenerative changes in the lumbar spine. Median sternotomy wires. SOFT TISSUES: Marked subcutaneous fat stranding in the flanks gluteal region bilaterally. IMPRESSION: 1. Small, 3.7 cm fluid collection along the surgical changes in the right atrium are not well evaluated without contrast medium; a small abscess cannot be excluded. 2. Bilateral trace pleural effusions and bibasilar subsegmental atelectasis. 3. No intra-abdominal abscess. Signed by: Dr. Javier Lopez M.D. on 09/07/2018 10:26 PM
[2018-09-08] VITALS (7 sets, daily range): BP systolic 100–124; BP diastolic 51–61
--- NOTE | 2018-09-08 02:31 | Consultation ---
DATE OF CONSULTATION: 09/06/2018 Renal Consultation REASON FOR CONSULTATION: End-stage renal disease. HISTORY OF PRESENT ILLNESS: A 57-year-old female with end-stage renal disease, on hemodialysis Friday, Friday, and Friday, who was sent to [facility] for fever. The patient had long hospitalization in March 2018 for methicillin-resistant Staphylococcus aureus endocarditis, requiring open-heart surgery and prolonged antibiotics. [facility]. Apparently, had dialysis catheter just recently changed. She developed fevers and was admitted and is currently seen on hemodialysis without complaints. PAST MEDICAL HISTORY: 1. End-stage renal disease, on hemodialysis Friday, Friday, and Friday. 2. Diabetes, type 2. 3. Hypertension. 4. Atrial fibrillation. 5. Left heel diabetic wound. PAST SURGICAL HISTORY: 1. Tunnelled dialysis catheter. 2. Cholecystectomy. 3. Appendectomy. 4. Open-heart surgery for endocarditis. SOCIAL HISTORY: No tobacco. No alcohol. No IV drugs. FAMILY HISTORY: Positive for hypertension and chronic kidney disease. ALLERGIES: CODEINE AND ACTOS. REVIEW OF SYSTEMS: As above, otherwise, all other systems negative. CURRENT MEDICATIONS: See list, includes cefepime, vancomycin, and midodrine. PHYSICAL EXAMINATION: VITAL SIGNS: Blood pressure 103/62, pulse 74, respiratory rate 18, and temperature 97.5. GENERAL: In no apparent distress. HEENT: Oropharynx clear. No scleral icterus. No periorbital edema. NECK: Supple. No elevation in jugular venous pressure. CHEST: Clear to auscultation anteriorly with decreased breath sounds at bases. CARDIOVASCULAR: Regular rhythm. ABDOMEN: Soft. Positive bowel sounds. No tenderness. No rebound. EXTREMITIES: 1+ edema. Dressing on heel. LABORATORY DATA: Sodium 132, potassium 4.4, chloride 94, CO2 of 24, BUN 70, creatinine 7.85, calcium 9.7. TSH 3.5. White count 8.19, hemoglobin 8.3, hematocrit 27.8, and platelets 191. ASSESSMENT AND PLAN: 1. End-stage renal disease. Continue hemodialysis Friday, Friday, and Friday. 2. Lytes will correct with hemodialysis. 3. Anemia secondary to chronic kidney disease. We will place the patient on Epogen. 4. Sepsis from methicillin-resistant Staphylococcus aureus. We will plan on removing tunneled dialysis catheter. 5. Diabetes per primary team. MD CHAPO Acosta/ROSALINE /[id number]
[2018-09-08 05:27] LABS: BASOPHILS % 0.6 % (0.0-1.0); EOSINOPHILS # (AUTO) 0.5 (0.0-0.4); EOSINOPHILS % 6.4 % (0.0-6.0); HEMATOCRIT 27.8 % (34.2-44.1); HEMOGLOBIN 8.2 g/dL (12.0-16.0); LYMPHOCYTES # (AUTO) 1.3 (1.0-3.2); LYMPHOCYTES % 19.2 % (18.0-39.1); MEAN CORPUSCULAR HEMOGLOBIN 29.2 pg (28-32); MEAN CORPUSCULAR HGB CONC 29.5 g/dL (31-35); MEAN CORPUSCULAR VOLUME 98.9 fL (81-99); MONOCYTES # (AUTO) 0.5 (0.2-0.8); MONOCYTES % 6.7 % (4.4-11.3); NEUTROPHILS # (AUTO) 4.7 (2.1-6.9); NEUTROPHILS % 66.8 % (38.7-80.0); PLATELET COUNT 170 x10e3/uL (140-360); RED BLOOD COUNT 2.81 x10e6/uL (3.6-5.1); RED CELL DISTRIBUTION WIDTH 17.5 % (11.7-14.4)
--- NOTE | 2018-09-08 05:32 | Consultation ---
DATE OF CONSULTATION: 09/07/2018 REASON FOR CONSULTATION: Sepsis, bacteremia. HISTORY OF PRESENT ILLNESS: This patient, who is a very pleasant 57-year-old female with history of diabetes mellitus, hypertension, end-stage renal disease, on hemodialysis. The patient apparently in March, she was septic with Staphylococcus aureus bacteremia, endocarditis, had to have a mitral valve replacement with a metallic valve. She had AV graft infection in right upper extremity, which was changed. The patient has received two months of antibiotics and she is in rehab. The patient was brought here to [facility] with fever and chills for the last week or so, especially after dialysis. The patient does have a line, which was subclavian on the right side placed for her dialysis. The patient is currently lying in bed comfortably. The patient was admitted, her blood cultures are showing Staphylococcus aureus, sensitivity is still pending on two sets. PAST MEDICAL HISTORY: As above. PAST SURGICAL HISTORY: As above. ALLERGIES: CODEINE. SOCIAL HISTORY: There is no smoking, drug abuse, or alcohol abuse. FAMILY HISTORY: Otherwise unremarkable. The patient is started on cefepime and vancomycin. REVIEW OF SYSTEMS: HEENT: Negative. PULMONARY: Negative. CARDIAC: Negative. : Negative. SKIN: There are no other rashes. PHYSICAL EXAMINATION: GENERAL: She is currently alert, oriented, does not seem to be in acute distress. VITAL SIGNS: Stable. Currently afebrile. HEENT: She is not icteric. NECK: Supple. CHEST: Clear. HEART: S1, S2. She does have systolic ejection murmur. ABDOMEN: Soft. Bowel sounds are present. No tenderness. EXTREMITIES: No edema. SKIN: No rash. IMPRESSION: Sepsis with Staph aureus is secondary to a line, which I think needs to be removed, but I am concerned that she may have infection affecting the valve. I would recommend vancomycin and rifampin. Await sensitivities, serial blood cultures. Obtain sedimentation rate, C-reactive protein, end-stage renal disease, and obesity. Depending on clinical progress, further recommendations to follow. MD AARON Thrasher/ROSALINE /[id number]
[2018-09-08 05:48] LABS: CALCIUM 8.5 mg/dL (8.4-10.2); CREATININE, SERUM 5.76 mg/dL (0.57-1.11); MAGNESIUM 1.9 MG/DL (1.3-2.1)
--- NOTE | 2018-09-08 05:48 | NUR ---
Received report from lab verifying patient tested positive for MRSA of blood (on all culture tubes). Patient to be placed on Contact Isolation.
[2018-09-08] MEDS: PANTOPRAZOLE SOD 40 MG TABEC PO SCH (06:24)
[2018-09-08] MEDS: INSULIN REGULAR, HUMAN 100 UNIT/1 ML 3ML VIAL SQ SCH ×4 (07:30→21:22)
[2018-09-08] MEDS: POLYETHYLENE GLYCOL 3350 17 GM PACK PO SCH (09:00)
[2018-09-08 09:26] LABS: INR 1.6; PROTHROMBIN TIME 19.7 seconds (11.9-14.5)
--- NOTE | 2018-09-08 09:30 | NUR ---
Spoke to ID to report CT scan results. Received new orders for Cubicin and they are recommending transfer to [facility]. Notified attending of ID recommendations and states they will discuss with Dr. Mark and call back. Cardiology was also notified of findings. No new orders at this time, She will see the pt this am, when she makes rounds.
[2018-09-08] MEDS: SEVELAMER CARBONATE 800 MG TAB PO SCH ×3 (09:40→17:49)
[2018-09-08] MEDS: AMIODARONE HCL 200 MG TAB PO SCH (09:41)
[2018-09-08] MEDS: FOLIC ACID/CYANOCOB/PYRIDOXINE TAB PO SCH (09:41)
[2018-09-08] MEDS: RIFAMPIN 300 MG CAP PO SCH (09:41)
[2018-09-08] MEDS: METOPROLOL TARTRATE 25 MG TAB PO SCH ×2 (09:41→17:48)
[2018-09-08] MEDS: SODIUM CHLORIDE 0.9% IV SCH (10:45)
[2018-09-08] MEDS: DAPTOMYCIN IV SCH (10:45)
[2018-09-08] MEDS ORDERED: HEPARIN IV SCH (11:30)
[2018-09-08] MEDS ORDERED: [UNRECOGNIZED DRUG - OTHER] IV SCH (11:30)
[2018-09-08] MEDS ORDERED: HEPARIN SOD (PORCINE) 5,000 UNIT/ML VIAL IV ONE (11:30)
[2018-09-08] MEDS ORDERED: HEPARIN 25000UNITS/0.45% NS 250 ML BAG IV ONE (11:59)
[2018-09-08] MEDS: HEPARIN IV SCH (12:00)
[2018-09-08] MEDS: [UNRECOGNIZED DRUG - OTHER] IV SCH (12:00)
[2018-09-08] MEDS: SODIUM CHLORIDE IV SCH (12:00)
--- NOTE | 2018-09-08 12:00 | NUR ---
Cardiology was here and gave orders to start pt on a heparin drip for MVR and afib. Doctor states she can be temporarily stop for tunnelled cath placement.
--- NOTE | 2018-09-08 12:36 | NUR ---
WOUND CARE CONSULTATION - INITIAL EVALUATION Patient admitted from senior care( [facility]) to ER for onset of fever. SX HX: Chiari malformation Repair, Heart surgery for endocarditis, AV fistula placement, cholecystectomy, appendectomy. HX: End-stage renal disease, Diabetes, Hypertension, Atrial fibrillation. LABS: WBC8.19 HGB8.3 NEUT%79.1 GLU97 HbA1c5.7 ALB0.6 Wound Care consulted for Ulcer evaluation of Sacral Area and Left Foot Ulcers. - Noted Dr. Beatty on case for wound care. Patient seen by him today. - Urban Score 19 - Alternate Pressure Air Mattress - Moderate PUP Active. PATIENT VISIT: -Patient is a pleasant 57 year-old female. -Sitting at bedside. with multipodus boot to LLE. -Verbalizes ulcerations to left foot and sacral areas. -Assisted back to bed. Unsteady gait 1 person asst required. Left Foot - Foot drop noted, multiple wounds noted: - Left Hallux - stable eschar at tip of toe. - Left 5th Met. Head.- stable eschar. - Left Heel - partial thickness ulcer. Right Foot intact. no ulcers identified. -Patient Diapered. Sacral ulcer- full thickness, 100% granulation with edges rolled. Undermining from 6-9 o'clock. Periwound intact, no redness, no swelling. Appears stable. IMPRESSION: - Sacral - Slow Healing, Stage IV Pressure Ulcer - Present on Admission. - Left Hallux - Diabetic Foot Ulcer - . - Left 5th Met. Head.- stable eschar. - Left Heel - partial thickness ulcer. RECOMMENDATION: Continue care as instructed by Dr. Beatty. 1. - Sacral -Stage IV- Pressure Ulcer- Present on Admission: - Cleanse wound with Normal Saline and 4x4 gauze. - Apply Silver Alginate ( Maxsorb Ag+) and cover with Allevyn Foam Sacrum Dressing Daily. 2. - Left Hallux - DFU Grade 4- Stable Eschar - WEIGHING STATION OPERATOR Monitor Daily 3. - Left 5th Met. Head.- DFU Grade 4 - Stable Eschar - WEIGHING STATION OPERATOR Monitor Daily 4. - Left Heel - DFU Grade 1 - Hydrogel and Cover with Allevyn Heel Dressing Daily 5. Continue alternating pressure Air Mattress. 6. Encourage Turning end repositioning q2h 7. Bilateral Heel Protectors/ Offload Heels with Pillows While in bed. 8. Encourage Out of bed activity. Thank you for consulting with Wound Care. Addendum: 09/08/18 at 1258 by Beka Fajardo RN Amended: Links added.
[2018-09-08] MEDS ORDERED: HYDRALAZINE HCL 20 MG/ML VIAL IV PRN (13:00)
[2018-09-08] MEDS ORDERED: ONDANSETRON HCL INJ 2MG/ML 2ML 2 MG/ML VIAL IV PRN (13:00)
--- NOTE | 2018-09-08 14:35 | Progress Note ---
DATE: 09/08/2018 Cardiology Progress Note SUBJECTIVE: The patient denies chest pain or shortness of breath. OBJECTIVE: VITAL SIGNS: Temperature 97.7 degrees, pulse 76, respiratory rate 20, blood pressure 100/51, and oxygen 92% on 3 L nasal cannula. GENERAL: Awake, alert, in no acute distress. LUNGS: Clear to auscultation bilaterally. No wheezes or crackles. CARDIOVASCULAR: Normal rate, irregularly irregular, mechanical S1. No murmur. ABDOMEN: Soft, nontender. EXTREMITIES: No edema. CARDIAC MEDICATIONS: Metoprolol tartrate 25 mg p.o. b.i.d., amiodarone 200 mg p.o. daily, atorvastatin 80 mg p.o. at bedtime, 10 mg p.o. t.i.d. as needed for dialysis. LABORATORY DATA: WBC 6.9, hemoglobin 8.2, hematocrit 27.8, and platelets 170. Sodium 132, potassium 4, chloride 97, CO2 of 26, BUN 42, and creatinine 5.76. BNP 994. INR 1.6. TELEMETRY: Atrial fibrillation. IMPRESSION: 1. Methicillin-resistant Staphylococcus aureus bacteremia. 2. History of methicillin-resistant Staphylococcus aureus endocarditis, status post mechanical mitral valve replacement. 3. Paroxysmal atrial fibrillation, status post Watchman. 4. End-stage renal disease, on hemodialysis. 5. Hypertension. 6. Hyperlipidemia. 7. Subtherapeutic INR. RECOMMENDATIONS: 1. Start heparin drip given mechanical valve, target INR is 2.5-3.5 given history of atrial fibrillation as well. Bridge to therapeutic INR once no further procedures are planned. Heparin drip can be temporarily held for dialysis catheter exchange. Antibiotics per Infectious Disease. Continue current cardiac medications. The patient will need a KARIN to evaluate for prosthetic valve endocarditis. CT findings are noted including continue monitoring. 2. Keep the patient on telemetry. Thank you for this consult. We will continue to follow. Leonila Loving MD ABS/MODL /[id number]
--- NOTE | 2018-09-08 17:58 | NUR ---
Nutrition Intervention Note RD Recommendation(s) for Physician: -Continue renal/ ADA diet as ordered -Rec Edmund BID for wound healing -Rec MVi w/minerals, vitamin C to support wound healing Plan of Care: RD following, monitoring for tolerance and adequacy, ONS rec Nutrition reason for involvement: Diagnosis Stage IV PU RD Assessment 09/08 Tamiko reviewed. 57yo F, who was admitted for fever. Pt came from [place]. +Bacteremia, MRSA in blood. Visited pt in room who denied significant wt loss, denied decrease in appetite VAPOR COATER. Pt denied chewing/swallowing problems and nausea/vomiting. LBM 09/07. Pt has had 75-100% recorded meal intake since admission. Pt was taking protein powder for her wound healing. RD rec to continue protein powder while she is in PMC; pt was agreeable with plan. Will cont to monitor. Please consult as needed. Principal Problems/Diagnoses: 1. Methicillin-resistant Staphylococcus aureus bacteremia. 2. Paroxysmal atrial fibrillation, status post Watchman. PMH: ESRD on HD, DM, HTN, Afib GI: abdomen soft, non-tender, LBM 09/08 Skin: Sacral - Slow Healing, Stage IV Pressure Ulcer - Present on Admission/ diabetic foot ulcer per wound care note Labs: (09/08) Na 133 L, BUN 42 H, Creatinine 5.76 H, Glucose 130 160 H Meds: heparin, renvela, insulin, abx, nephro-adrián, protonix Ht: 64in Wt: 232lb BMI: 39.8kg/m2 IBW: 120lb Malnutrition Evaluation (09/08) The patient does not meet criteria for a specified degree of malnutrition at this time. Will re-evaluate at follow-up as appropriate. Nutrition Prescription (Diet Order): renal/ ADA diet Estimated Nutritional Needs: Calories: 1375 1650kcal(25-30kcal/kg/d) Weight used: IBW Protein: 66 83g (1.2-1.5g/kg/d) Weight used: IBW Diet Adequacy: Meeting calorie needs, Not meeting protein needs Diet Education Needs Assessment: Diet education not indicated followed by RD at dialysis facility Nutrition Care Level: low Nutrition Diagnosis: Increased protein needs related to altered skin integrity as evidenced by stage IV pressure ulcer. Goal: Patient will meet 75-100% of estimated needs by follow up Progress: N/A Interventions: Mineral/ carb-modified diet, Commercial food, Multivitamin/mineral supplement therapy Monitoring/Evaluation: Total energy intake, Total protein intake, Modified diet, supplement, Weight change Signed: Leyla Pablo MS, RD, LD
--- NOTE | 2018-09-08 18:00 | NUR ---
Received report from cathode maker that Dr. Morris should be called in the morning to report coagulation results, and see when he wants to hold heparin. Dialysis has been notified that pt should be done on 1st shift.
--- NOTE | 2018-09-08 18:21 | Consultation ---
DATE OF CONSULTATION: 09/08/[address] you Dr. Mark for asking us to see this patient with a chronic nonhealing ulcer to the sacrum and left heel. HISTORY OF PRESENT ILLNESS: A 57-year-old morbidly obese female patient with history of diabetes, end-stage renal disease, had an infected AV graft on the right arm in March with endocarditis, who was transferred from [place] to [facility], underwent prosthetic mitral valve replacement. The patient remained encephalopathic, on ventilator for several weeks and she developed sacral pressure ulcer. Later, she was discharged to [facility]. She developed fever and she is admitted now. She is diagnosed with MRSA bacteremia. She had a CT of the chest showing small 3.7 cm fluid collection along the surgical changes in the right atrium, not well evaluated without contrast. Wound consult was called. The patient is awake, alert, and oriented. She has stage 4 pressure ulcer to the coccyx area, measures approximately 3.5 x 3 cm x 2 cm with undermining between 10 and 12 o'clock position for 3.5 cm, 100% granulated, moderate serous drainage present. Left lateral heel, the patient has stage 4 pressure ulcer, measures 0.5 x 1.5 cm, wound margin has callus formation with 100% slough. Left great toe is necrotic. PAST MEDICAL HISTORY: End-stage renal disease, diabetes mellitus, morbid obesity, history of right AV graft infection spread to the valve status post mitral valve prosthetic valve replacement in March 2018. History of Arnold-Chiari malformation, presented with weakness of the left side, underwent surgery in 2009 at [facility], the patient did not have any RHEOLOGIST shunt at that time, she recovered later on. PERSONAL HISTORY: No history of smoking, alcohol, or drugs. MEDICATIONS: Metoprolol 25 mg b.i.d., sevelamer 3 times weekly, midodrine, amiodarone 200 mg daily, montelukast, albuterol. PHYSICAL EXAMINATION: VITAL SIGNS: Blood pressure 103/62, pulse of 74, and temperature 97.5. Height 5 feet 4 inches, weight 239 pounds. HEENT: Normal. NECK: No JVD. LUNGS: Clear. RIGHT SUBCLAVIAN: The patient has dialysis catheter. ABDOMEN: Soft. Bowel sounds normal. LOWER EXTREMITIES: No edema. SKIN: As described in HPI. ASSESSMENT: 1. Stage 4 pressure ulcer, chronic and healing with granulation. 2. Left diabetic heel ulcer, Beatty 2, possible osteomyelitis cannot be ruled out. PLAN: We will pack the sacral ulcer with Aquacel Ag, 4x4, ABD, tape, and hydrogel Mepilex to the heel. Aggressive treatment for sepsis. Thank you for consultation. We will follow up. MD AIDAN Winkler/MODL /[id number]
--- NOTE | 2018-09-08 18:31 | Progress Note ---
DATE: 09/08/2018 Pulmonary Critical Care Progress Note SUBJECTIVE: The patient has Staph bacteremia. Her CT scan of the chest shows a small fluid collection in the right atrium. The patient was taken off warfarin and is on heparin. PHYSICAL EXAMINATION: VITAL SIGNS: The patient is afebrile. The blood pressure is 112/61 and the pulse is 82. Saturation is 94% on 3 L. HEENT: Shows no facial swelling or erythema. CARDIAC: Reveals regular rate and rhythm with a normal S1 and S2. There are no murmurs or rubs heard. LUNGS: Auscultation of the lungs reveals clear breath sounds bilaterally. There is no wheezing. ABDOMEN: Soft, nontender. There is no rebound or guarding. EXTREMITIES: Show no leg edema or calf tenderness. There is no cyanosis or clubbing. LABORATORY DATA: White blood cell count is 6.99 and the hemoglobin is 8.2. The platelet count is 170. The BUN to creatinine ratio is 42:5.76. The other electrolytes are within normal limits. The PT is 19.7 and the INR is 1.6. IMPRESSION: 1. Staph bacteremia with possible endocardial abscess. 2. End-stage renal disease. PLAN: 1. Continue antibiotics. 2. CT Surgery consultation. 3. Continue heparin. 4. Dialysis as needed. Manan Wallace MD [facility]/MODL /[id number]
--- NOTE | 2018-09-08 19:15 | NUR ---
Received patient awake, sitting on a chair, with O2 support, not in distress, with ongoing Heparin drip at 13ml/hr, last PTT was 50.9, awaiting PTT result drawn at 1800, will continue to monitor
--- NOTE | 2018-09-08 19:30 | NUR ---
latest PTT 69.8, no change per protocol
[2018-09-08] MEDS: TRAMADOL HCL 50 MG TAB PO PRN (22:09)
[2018-09-08] MEDS: SERTRALINE HCL 50 MG TAB PO SCH (22:09)
[2018-09-08] MEDS: ATORVASTATIN 40 MG TAB PO SCH (22:09)
[2018-09-08] MEDS: MONTELUKAST SODIUM 10 MG TAB PO SCH (22:09)
[2018-09-09] VITALS (8 sets, daily range): BP systolic 97–124; BP diastolic 52–66
--- NOTE | 2018-09-09 | NUR ---
PTT 55 no change per protocol, Heparin rate at 13ml/hr
--- NOTE | 2018-09-09 | NUR ---
PTT resulted 55.8
[2018-09-09 00:27] LABS: INR 1.53
[2018-09-09] MEDS: HYDROCODONE/APAP 7.5MG-325MG 1 EA TAB PO PRN ×3 (02:45→23:00)
[2018-09-09 04:27] LABS: BASOPHILS % 0.7 % (0.0-1.0); EOSINOPHILS # (AUTO) 0.4 (0.0-0.4); EOSINOPHILS % 7.2 % (0.0-6.0); HEMATOCRIT 29.1 % (34.2-44.1); HEMOGLOBIN 8.5 g/dL (12.0-16.0); LYMPHOCYTES # (AUTO) 1.5 (1.0-3.2); LYMPHOCYTES % 25.2 % (18.0-39.1); MEAN CORPUSCULAR HEMOGLOBIN 28.6 pg (28-32); MEAN CORPUSCULAR HGB CONC 29.2 g/dL (31-35); MONOCYTES # (AUTO) 0.4 (0.2-0.8); MONOCYTES % 7.3 % (4.4-11.3); NEUTROPHILS # (AUTO) 3.5 (2.1-6.9); NEUTROPHILS % 59.1 % (38.7-80.0); PLATELET COUNT 175 x10e3/uL (140-360); RED BLOOD COUNT 2.97 x10e6/uL (3.6-5.1); RED CELL DISTRIBUTION WIDTH 17.2 % (11.7-14.4)
[2018-09-09 04:37] LABS: ANION GAP 17.5 mmol/L (8-16); CALCIUM 8.4 mg/dL (8.4-10.2); CREATININE, SERUM 7.2 mg/dL (0.57-1.11); MAGNESIUM 2.1 MG/DL (1.3-2.1); POTASSIUM 4.5 mmol/L (3.5-5.1)
--- NOTE | 2018-09-09 05:45 | NUR ---
PTT resulted 75.6, no change per protocol, current rate at 13ml/hr
[2018-09-09] MEDS: MIDODRINE 2.5 MG TAB PO PRN (07:20)
[2018-09-09] MEDS: SODIUM CHLORIDE IV SCH (07:24)
[2018-09-09] MEDS: HEPARIN IV SCH (07:24)
[2018-09-09] MEDS: [UNRECOGNIZED DRUG - OTHER] IV SCH (07:24)
[2018-09-09] MEDS: INSULIN REGULAR, HUMAN 100 UNIT/1 ML 3ML VIAL SQ SCH ×4 (07:30→20:27)
--- NOTE | 2018-09-09 07:44 | NUR ---
communicated with incoming RN to call Dr. Morris to update regarding coag result
[2018-09-09] MEDS: SEVELAMER CARBONATE 800 MG TAB PO SCH ×3 (08:00→17:04)
[2018-09-09] MEDS: PANTOPRAZOLE SOD 40 MG TABEC PO SCH (11:56)
[2018-09-09] MEDS: RIFAMPIN 300 MG CAP PO SCH (11:58)
[2018-09-09] MEDS: POLYETHYLENE GLYCOL 3350 17 GM PACK PO SCH (11:58)
[2018-09-09] MEDS: METOPROLOL TARTRATE 25 MG TAB PO SCH ×2 (11:58→17:00)
[2018-09-09] MEDS: AMIODARONE HCL 200 MG TAB PO SCH (11:58)
[2018-09-09] MEDS: FOLIC ACID/CYANOCOB/PYRIDOXINE TAB PO SCH (11:58)
--- NOTE | 2018-09-09 14:40 | NUR ---
SPOKE WITH Alessandro MONTES REGARDING CULTURE ORDERS- NEW ORDERS RECEIVED.
[2018-09-09] MEDS ORDERED: LIDOCAINE HCL 1% LOCAL INJ 20 ML VIAL ONE (14:54)
--- NOTE | 2018-09-09 16:02 | NUR ---
CM SPOKE TO PATIENT AT BEDSIDE REGARDING IMM LETTER. IMM LETTER GIVEN WITH EXPLANATION BASED ON ANTICIPATED DISCHARGE DATE. ORIGINAL SIGNED AND PLACED IN CHART; COPY OF ORIGINAL DOCUMENT GIVEN TO PATIENT AT BEDSIDE AND PLACED IN CARE TRANSITION FOLDER. CM CONTACT INFORMATION GIVEN TO PATIENT FOR ANY NEEDS OR CONCERNS. PATIENT WITH NO FURTHER QUESTIONS.
[2018-09-09] MEDS: EPOETIN ALFA 10000 UNIT/ML VIAL SC SCH (17:04)
--- NOTE | 2018-09-09 17:18 | Diagnostic Imaging Report ---
PROCEDURE: Removal of right IJ tunneled hemodialysis catheter INDICATION: Bacteremia. Pre-op diagnosis: Bacteremia, suspected right IJ dialysis catheter source Post-op diagnosis: Bacteremia, status post right IJ dialysis catheter removal OPERATORS: Kaiden Morris MD ESTIMATED BLOOD LOSS: 0 cc SEDATION/MEDICATIONS: None IMPLANTS: None SPECIMEN: Right IJ tunneled hemodialysis catheter. CONDITION AT COMPLETION: Stable Disposition: To floor. CONSENT: The patient was informed of the nature of the proposed procedure. The purposes, alternatives, risks, and benefits were explained and discussed. All questions were answered and written consent was obtained. PROCEDURE DESCRIPTION: The patient was brought to IR and the right neck and chest were prepped and draped in standard sterile fashion. The existing sutures were cut. With gentle traction, the catheter (which was exchanged within the last week) easily was removed intact. Catheter tip was sent for microbiology. After confirming hemostasis, the incision was covered with a sterile dressing. The patient tolerated procedure well without immediate complication and was transported back to the floor in stable condition. IMPRESSION: Removal of right IJ tunneled hemodialysis catheter as above. Catheter tip was sent for microbiology. Signed by: Dr. Kaiden Morris MD on 09/09/2018 5:14 PM
--- NOTE | 2018-09-09 18:27 | Progress Note ---
DATE: 09/09/2018 Pulmonary Critical Care Progress Note SUBJECTIVE: The patient is scheduled for KARIN tomorrow. Her dialysis catheter was removed. She is not having any fevers. PHYSICAL EXAMINATION: VITAL SIGNS: The patient is afebrile. The blood pressure is 97/66 and saturation is 96% on 3 L. HEENT: No facial swelling or erythema. CARDIAC: Regular rate and rhythm with normal S1 and S2. There are no murmurs or rubs. LUNGS: Auscultation of lungs reveals clear breath sounds bilaterally. There is no wheezing. ABDOMEN: Soft, nontender. There is no rebound or guarding. EXTREMITIES: Show no leg edema or calf tenderness. LABORATORY DATA: The white blood cell count is 5.8 and hemoglobin is 8.5. The platelet count is 175. The BUN to creatinine ratio is 55 to 7.2 and the other electrolytes are within normal limits. MICROBIOLOGICAL DATA: Shows Staph aureus in the blood. IMPRESSION: 1. Staph bacteremia with possible recurrent endocarditis. 2. End-stage renal disease. PLAN: 1. Await transesophageal echo tomorrow. 2. Continue heparin. 3. Continue antibiotics. 4. Dialysis as needed. aMnan Wallace MD LM/ROSALINE /[id number]
--- NOTE | 2018-09-09 19:27 | NUR ---
PATIENT IS IN STABLE CONDITION WITH NO S/S OF RESPIRATORY DISTRESS. NO PAIN VOICED. IV HEPARIN INFUSING. RN'S REPOSITION PATIENT IN BED. CALL LIGHT IS WITHIN REACH, PATIENT INSTRUCTED TO CALL FOR ASSISTANCE NEEDED. BEDSIDE REPORT COMPLETED WITH ONCOMING NURSE.
--- NOTE | 2018-09-09 19:58 | Progress Note ---
DATE: 09/09/2018 Cardiology Progress Note SUBJECTIVE: The patient denies chest pain or shortness of breath. She is pending surgical evaluation by Dr. Helm. OBJECTIVE: VITAL SIGNS: Temperature 97.3 degrees, pulse 65, respiratory rate 16, blood pressure 97/66, oxygen saturation 96% on 3 L nasal cannula. GENERAL: Awake, alert, in no acute distress. LUNGS: Clear to auscultation bilaterally. No wheezes or crackles. CARDIOVASCULAR: Normal rate, irregularly irregular. Mechanical S1. No murmur. ABDOMEN: Soft, nontender. EXTREMITIES: No edema. CARDIAC MEDICATIONS: Amiodarone 200 mg p.o. daily, midodrine 10 mg p.o. t.i.d. as needed for dialysis, atorvastatin 80 mg p.o. at bedtime, and metoprolol tartrate 25 mg p.o. b.i.d. LABS: WBC 5.87, hemoglobin 8.5, hematocrit 29.1, platelets 175. Sodium 131, potassium 4.5, chloride 96, CO2 of 22, BUN 55, creatinine 7.2. BNP 652. TELEMETRY: Atrial fibrillation. IMPRESSION: 1. Methicillin-resistant Staphylococcus aureus bacteremia. 2. History of methicillin-resistant Staphylococcus aureus endocarditis, status post mechanical mitral valve replacement. 3. Paroxysmal atrial fibrillation, status post Watchman. 4. End-stage renal disease, on hemodialysis. 5. Hypertension. 6. Hyperlipidemia. 7. Subtherapeutic INR. RECOMMENDATIONS: Continue heparin drip given mechanical mitral valve. Her target INR is 2.5-3.5 given history of atrial fibrillation. Bridge to therapeutic INR with warfarin once no further procedures are planned. In the meantime, the patient underwent dialysis catheter removal today. Plan for KARIN tomorrow to evaluate for endocarditis. Continue heparin drip as the patient will need dialysis catheter replacement, which is tentatively scheduled for Friday. CV Surgery consultation is pending given findings noted on CT. Continue current cardiac medications. Monitor the patient closely on telemetry. Antibiotics per Infectious Disease. Thank you for this consult. We will continue to follow. Leonila Loving MD ABS/MODL /[id number]
[2018-09-09] MEDS: MONTELUKAST SODIUM 10 MG TAB PO SCH (20:37)
[2018-09-09] MEDS: ATORVASTATIN 40 MG TAB PO SCH (20:37)
[2018-09-09] MEDS: SERTRALINE HCL 50 MG TAB PO SCH (20:37)
[2018-09-10] VITALS (9 sets, daily range): BP systolic 96–127; BP diastolic 51–98
[2018-09-10 06:16] LABS: BASOPHILS % 0.7 % (0.0-1.0); EOSINOPHILS # (AUTO) 0.3 (0.0-0.4); EOSINOPHILS % 5.6 % (0.0-6.0); HEMATOCRIT 29.4 % (34.2-44.1); HEMOGLOBIN 8.3 g/dL (12.0-16.0); LYMPHOCYTES # (AUTO) 1.7 (1.0-3.2); LYMPHOCYTES % 28.9 % (18.0-39.1); MEAN CORPUSCULAR HEMOGLOBIN 28.5 pg (28-32); MEAN CORPUSCULAR HGB CONC 28.2 g/dL (31-35); MONOCYTES # (AUTO) 0.5 (0.2-0.8); MONOCYTES % 8.7 % (4.4-11.3); NEUTROPHILS # (AUTO) 3.3 (2.1-6.9); NEUTROPHILS % 55.6 % (38.7-80.0); PLATELET COUNT 172 x10e3/uL (140-360); RED BLOOD COUNT 2.91 x10e6/uL (3.6-5.1); RED CELL DISTRIBUTION WIDTH 17.2 % (11.7-14.4)
[2018-09-10 06:45] LABS: ANION GAP 14.9 mmol/L (8-16); CALCIUM 8.4 mg/dL (8.4-10.2); CREATININE, SERUM 4.97 mg/dL (0.57-1.11); PHOSPHORUS 4.3 MG/DL (2.3-4.7); POTASSIUM 3.9 mmol/L (3.5-5.1)
[2018-09-10 06:54] LABS: INR 1.29; PROTHROMBIN TIME 16.7 seconds (11.9-14.5)
[2018-09-10] MEDS: SODIUM CHLORIDE IV SCH (07:22)
[2018-09-10] MEDS: HEPARIN IV SCH (07:22)
[2018-09-10] MEDS: [UNRECOGNIZED DRUG - OTHER] IV SCH (07:22)
[2018-09-10] MEDS: PANTOPRAZOLE SOD 40 MG TABEC PO SCH (07:30)
[2018-09-10] MEDS: INSULIN REGULAR, HUMAN 100 UNIT/1 ML 3ML VIAL SQ SCH ×4 (07:30→21:00)
[2018-09-10] MEDS ORDERED: BENZOCAINE 20% SPR 60 ML CAN ONE ×2 (07:42→10:18)
[2018-09-10] MEDS ORDERED: SODIUM CHLORIDE 0.9% 1000ML 0 ML ONE (07:42)
[2018-09-10] MEDS: SEVELAMER CARBONATE 800 MG TAB PO SCH ×3 (08:00→17:53)
--- NOTE | 2018-09-10 08:20 | NUR ---
0820 Transported to Endo room [address] Loving. Patient interviewed by the attending anesthesiologist and pharmacy sales assistant. VSS 0830 Monitors applied, Hurricaine spray administered to the patient's throat, patient positioned to left-side lying. 0837 Dr. Loving arrived, time-out taken. 0840 assistant business manager began sedation. See anesthesia record for vital signs and medications administered. 0843 KARIN scope [address] Dr[address] Loving, procedure started. 0847 Procedure aborted due to complications with the scope, scope removed. 0852 Patient transferred to PACU room 20, report given to KATY Whaley.
--- NOTE | 2018-09-10 08:21 | NUR ---
PATIENT OFF THE UNIT PER BED TO WHOLESALE MANAGER FOR PROCEDURE. PATIENT IN STABLE CONDITION WITH NO S/S OF RESPIRATORY DISTRESS. TELEMETRY APPLIED.
[2018-09-10] MEDS: METOPROLOL TARTRATE 25 MG TAB PO SCH ×2 (08:23→17:53)
[2018-09-10] MEDS: POLYETHYLENE GLYCOL 3350 17 GM PACK PO SCH (09:00)
--- NOTE | 2018-09-10 09:02 | NUR ---
RECEIVED PHONE CALL FROM DR. MICHAELS- PROCEDURE HAD TO STOP AND WILL BE RESCHEDULED FOR A LATER DATE. ORDER TO KEEP THE PATIENT NPO FOR TWO HOURS.
--- NOTE | 2018-09-10 09:28 | NUR ---
PATIENT BACK ON THE UNIT PER BED. TELEMETRY AND O2 APPLIED. PATIENT'S LEFT FOREARM IV IS INFILTRATED- PINK, PUFFY, AND SENSITIVE TO PATIENT. BED ALARM APPLIED.
[2018-09-10] MEDS ORDERED: SODIUM CHLORIDE 0.9% 1000ML 1,000 ML ONE (10:13)
--- NOTE | 2018-09-10 10:29 | NUR ---
PATIENT OFF THE UNIT TO TIRE DESIGN ENGINEER- PATIENT IN STABLE CONDITION WITH NO S/S OF RESPIRATORY DISTRESS.
--- NOTE | 2018-09-10 10:33 | NUR ---
1033 Transported to Endo room [address] Loving. Patient interviewed by the attending anesthesiologist and inside sales assistant. VSS 1035 Monitors applied, Hurricaine spray administered to the patient's throat, patient positioned to left-side lying position. 1037 Dr. Loving arrived, time-out taken. 1038 bilingual executive assistant began sedation. See anesthesia record for vital signs and medications administered. 1040 KARIN scope inserted by Dr. Loving, procedure started. 1054 Procedure complete, scope removed. Patient transported to PACU room 20, report to KATY Whaley.
--- NOTE | 2018-09-10 11:24 | NUR ---
RECEIVED REPORT FROM PACU NURSE REGARDING KARIN COMPLETION. PATIENT TO BE NPO FOR TWO HOURS.
--- NOTE | 2018-09-10 11:48 | NUR ---
PATIENT BACK ON THE UNIT FROM PACU- PATIENT IS IN STABLE CONDITION WITH NO S/S OF RESPIRATORY DISTRESS. 02 APPLIED AT 2L NC. NO PAIN VOICED. IV HEPARIN INFUSING. BED ALARM ON. CALL LIGHT IS WITHIN REACH- PATIENT INSTRUCTED TO CALL FOR ASSISTANCE NEEDED.
[2018-09-10] MEDS: SODIUM CHLORIDE 0.9% IV SCH (12:28)
[2018-09-10] MEDS: DAPTOMYCIN IV SCH (12:28)
--- NOTE | 2018-09-10 12:42 | NUR ---
CALL PLACED OUT TO DR. MICHAELS TO VERIFY DIET ORDERS. AWAITING CALLBACK.
[2018-09-10] MEDS: RIFAMPIN 300 MG CAP PO SCH (13:29)
[2018-09-10] MEDS: HYDROCODONE/APAP 7.5MG-325MG 1 EA TAB PO PRN (13:29)
[2018-09-10] MEDS: AMIODARONE HCL 200 MG TAB PO SCH (13:29)
[2018-09-10] MEDS: FOLIC ACID/CYANOCOB/PYRIDOXINE TAB PO SCH (13:29)
--- NOTE | 2018-09-10 14:50 | Progress Note ---
DATE: 09/10/2018 Cardiology Progress Note SUBJECTIVE: The patient denies chest pain or shortness of breath. KARIN was attempted earlier this morning, but after insertion of the probe, there was a technical error with inability to change the transducer angle. KARIN was aborted. Once probe was tested and confirmed to be functioning, KARIN was re-attempted with successful acquisition of images. OBJECTIVE: VITAL SIGNS: Temperature 97.8 degrees, pulse 91, respiratory rate 16, blood pressure 91/54, oxygen 100% on 2 L nasal cannula. GENERAL: Awake, alert, no acute distress. LUNGS: Clear to auscultation bilaterally. No wheeze or crackles. CARDIOVASCULAR: Normal rate, irregularly irregular, mechanical S1. No murmur. ABDOMEN: Soft, nontender. EXTREMITIES: No edema. CARDIAC MEDICATIONS: Atorvastatin 80 mg p.o. at bedtime, amiodarone 200 mg p.o. daily, midodrine 10 mg p.o. t.i.d. LABORATORY DATA: WBC 5.88, hemoglobin 8.3, hematocrit 29.4, platelets 172. Sodium 136, potassium 3.9, chloride 100, CO2 of 25, BUN 31, creatinine 4.97. BNP 767. Telemetry, atrial fibrillation. IMPRESSION: 1. Methicillin-resistant Staphylococcus aureus bacteremia. 2. History of methicillin-resistant Staphylococcus aureus endocarditis, status post mechanical mitral valve replacement. 3. Paroxysmal atrial fibrillation, status post Watchman. 4. End-stage renal disease, on hemodialysis. 5. Hypertension. 6. Hyperlipidemia. 7. Subtherapeutic INR. RECOMMENDATIONS: Continue heparin drip, given mechanical mitral valve. Target INR is 2.5 to 3.5, given history of atrial fibrillation. Heparin drip can be temporally held for dialysis catheter insertion tomorrow. Otherwise, bridge to therapeutic INR once no further procedures are planned. KARIN revealed normal functioning mechanical mitral valve. There was no evidence of vegetation, however, it does appear to be a mild paravalvular leak. We will attempt to obtain records from [facility] to determine if this is new. Continue current cardiac medications otherwise. CV Surgery consultation is pending, given findings on CT. Antibiotics per Infectious Disease. Monitor patient closely on telemetry. Thank you for this consult. We will continue to follow. Leonila Loving MD [facility]/MODL /[id number]
--- NOTE | 2018-09-10 15:49 | NUR ---
DR. CROOK ON THE UNIT- ORDERS TO HAVE RN CALL HIM TOMORROW WITH POTASSIUM LEVEL AND LABS. ORDER FOR BMP AND CBC BUT ATTENDING HAS PLACED LAB ORDERS ALREADY.
[2018-09-10] MEDS ORDERED: PROPOFOL IV EMULSION 10 MG/ML 20 ML VIAL ONE (17:13)
[2018-09-10] MEDS ORDERED: PHENYLEPHRINE HCL 1% 10 MG/ML VIAL ONE (17:13)
--- NOTE | 2018-09-10 19:29 | NUR ---
PATIENT IS SITTING IN THE WHEELCHAIR. PATIENT IS IN STABLE CONDITION WITH NO S/S OF RESPIRATORY DISTRESS. NO PAIN VOICED. O2 APPLIED. IV HEPARIN INFUSING. CALL LIGHT IS WITHIN REACH- PATIENT INSTRUCTED TO CALL FOR ASSISTANCE NEEDED. BEDSIDE REPORT GIVEN TO ONCOMING NURSE.
[2018-09-10] MEDS: MONTELUKAST SODIUM 10 MG TAB PO SCH (20:44)
[2018-09-10] MEDS: SERTRALINE HCL 50 MG TAB PO SCH (20:44)
[2018-09-10] MEDS: ATORVASTATIN 40 MG TAB PO SCH (20:44)
[2018-09-11] VITALS (7 sets, daily range): BP systolic 105–147; BP diastolic 54–80
[2018-09-11] MEDS: HYDROCODONE/APAP 7.5MG-325MG 1 EA TAB PO PRN ×3 (01:00→23:11)
[2018-09-11 06:17] LABS: BASOPHILS # (AUTO) 0.1 (0.0-0.1); BASOPHILS % 0.9 % (0.0-1.0); EOSINOPHILS # (AUTO) 0.4 (0.0-0.4); EOSINOPHILS % 5.5 % (0.0-6.0); HEMATOCRIT 27.8 % (34.2-44.1); LYMPHOCYTES # (AUTO) 2.2 (1.0-3.2); LYMPHOCYTES % 32.4 % (18.0-39.1); MEAN CORPUSCULAR HEMOGLOBIN 28.6 pg (28-32); MEAN CORPUSCULAR HGB CONC 28.8 g/dL (31-35); MEAN CORPUSCULAR VOLUME 99.3 fL (81-99); MONOCYTES # (AUTO) 0.5 (0.2-0.8); MONOCYTES % 6.9 % (4.4-11.3); NEUTROPHILS # (AUTO) 3.6 (2.1-6.9); PLATELET COUNT 192 x10e3/uL (140-360); RED CELL DISTRIBUTION WIDTH 17.2 % (11.7-14.4)
[2018-09-11 06:32] LABS: INR 1.27; PROTHROMBIN TIME 16.5 seconds (11.9-14.5)
[2018-09-11 06:44] LABS: ANION GAP 16.7 mmol/L (8-16); CREATININE, SERUM 6.33 mg/dL (0.57-1.11); POTASSIUM 4.7 mmol/L (3.5-5.1)
[2018-09-11] MEDS: INSULIN REGULAR, HUMAN 100 UNIT/1 ML 3ML VIAL SQ SCH ×4 (07:30→21:00)
--- NOTE | 2018-09-11 07:30 | NUR ---
PT IN BED SLEEPING ,CPAP IN PLACE,NO S/S DISCOMFORT.
[2018-09-11 07:41] LABS: PLATELET ESTIMATE ADEQUATE; PLATELET MORPHOLOGY COMMENT NORMAL; RBC MORPHOLOGY COMMENT NORMAL
[2018-09-11] MEDS: METOPROLOL TARTRATE 25 MG TAB PO SCH ×2 (08:00→17:04)
[2018-09-11] MEDS: FOLIC ACID/CYANOCOB/PYRIDOXINE TAB PO SCH (08:00)
[2018-09-11] MEDS: RIFAMPIN 300 MG CAP PO SCH (08:00)
[2018-09-11] MEDS: AMIODARONE HCL 200 MG TAB PO SCH (08:00)
[2018-09-11] MEDS: SEVELAMER CARBONATE 800 MG TAB PO SCH ×3 (08:00→17:04)
--- NOTE | 2018-09-11 08:00 | NUR ---
NO CHANGE IN HEPARIN,PTT 57.9.PTT TO BE DRAWN IN AM
[2018-09-11] MEDS: PANTOPRAZOLE SOD 40 MG TABEC PO SCH (08:15)
[2018-09-11] MEDS: POLYETHYLENE GLYCOL 3350 17 GM PACK PO SCH (09:00)
--- NOTE | 2018-09-11 10:00 | NUR ---
SPOKE WITH DR OVALLES ,HOLD HEPARIN UNTIL AFTER PROCEDURE.
--- NOTE | 2018-09-11 13:30 | NUR ---
PT TRANSPORTED TO IR VIA W/C
[2018-09-11] MEDS: ALBUTEROL SULFATE HFA 8GM INHALATION AEROSOL INH PRN (13:40)
[2018-09-11] MEDS: HEPARIN IV SCH (14:00)
[2018-09-11] MEDS: [UNRECOGNIZED DRUG - OTHER] IV SCH (14:00)
[2018-09-11] MEDS: SODIUM CHLORIDE IV SCH (14:00)
--- NOTE | 2018-09-11 14:45 | NUR ---
PT RETURNED TO ROOM VIA STRETCHER ,AAOX3,PAIN LEVEL 5,NO DISTRESS NTOED.
--- NOTE | 2018-09-11 14:55 | NUR ---
RETURNED TO ROOM DIALYSIS CATHERE TO RT NECK ,OK TO USE PER DR OVALLES
--- NOTE | 2018-09-11 15:00 | NUR ---
C/O PAIN LEVEL 5 MEDICATED
--- NOTE | 2018-09-11 15:23 | Diagnostic Imaging Report ---
Exam: Ultrasound guidance for venous access. History: Patient with end stage renal disease and bacteremia. Previously she had a tunneled hemodialysis catheter removed because of bacteremia. She continues to need dialysis and a temporary HD catheter is requested. Comparison: None available Findings: The right internal jugular vein is patent. Ultrasound was utilized for venous access into the right internal jugular vein. Images were stored to the medical record. Impression: Ultrasound guidance for venous access. The right internal jugular vein is patent. Signed by: Dr. Camilo Gomes DO on 09/11/2018 3:20 PM
--- NOTE | 2018-09-11 15:44 | Diagnostic Imaging Report ---
FOOT LEFT COMPLETE - 3 views HISTORY: Pain COMPARISON: None available. FINDINGS: Generalized mineralization. Tip of the distal phalanx of the second toe is not well-defined, suspicious for erosive changes. Soft tissue defect/loss of the tip of the great toe without definite underlying osseous erosion. No acute fracture or dislocation. Vascular calcifications. IMPRESSION: Suspected mild erosive changes of the tip of the distal phalanx of the second toe. Signed by: Dr. Hussain Pahm MD on 09/12/2018 9:41 AM
--- NOTE | 2018-09-11 15:44 | Diagnostic Imaging Report ---
Procedure: Non tunneled hemodialysis catheter placement. Medications: 1% lidocaine. Indication: Patient with end stage renal disease. Previously a tunneled hemodialysis catheter was removed because of bacteremia. Continued dialysis is requested and a temporary line is necessary. Fluoroscopy time: 0.7 minutes. Dose area product: 19.48 mGy Contrast used: None Estimated blood loss: Less than 2 cc Complications: No immediate. Procedure in detail: Informed consent was obtained. The right neck was prepped and draped in the standard full barrier sterile fashion. Utilizing continuous sonographic guidance, a 21-gauge micropuncture needle was advanced into the right internal jugular vein. A 0.018 " wire was advanced centrally under fluoroscopic guidance. A 0.035 " Amplatz superstiff wire was then advanced through the micropuncture sheath into the right atrium under fluoroscopic guidance. Dilatation with an 8 Setswana and 10 Setswana dilator was accomplished. A 12 Setswana Bard triple-lumen Trialysis 15 cm long catheter was then placed over the wire. Tip of the catheter at the cavoatrial junction. Each catheter lumen showed good bidirectional flow. Each lumen was then flushed with saline. The catheter was secured at the exit site on the right upper chest with 3-0 Ethilon suture. The patient tolerated the procedure well without immediate complication. Impression: 1. Successful placement of a triple-lumen temporary non-tunneled hemodialysis catheter. 2. The line is okay for immediate use. Signed by: Dr. Camilo Gomes DO on 09/11/2018 3:40 PM
--- NOTE | 2018-09-11 16:26 | NUR ---
Nutrition Intervention Note RD Recommendation(s) for Physician: - Continue renal/ ADA diet as ordered - Rec probiotics for gut health - Rec Beneprotein BID for wound healing - Rec MVi w/minerals, vitamin C to support wound healing Plan of Care: RD following, monitoring for tolerance and adequacy, ONS rec Nutrition reason for involvement: RN request RD Assessment 09/[address]AT[address] RD to revisit pt as pt didnt like the Edmund ordered. Visited pt in the room. Rec Beneprotein and pt was willing to try. Appetite has been good. Pt denied any nausea or vomiting. Pt had some diarrhea yesterday and today. Was on IV abx. Miralax on hold. Communicated with Deandra COMMUNICATIONS ELECTRICIAN SUPERVISOR to order probiotics for gut health. Will continue to monitor and follow. 09/08 Tamiko reviewed. 57yo F, who was admitted for fever. Pt came from [facility]. +Bacteremia, MRSA in blood. 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 Pt denied chewing/swallowing problems and nausea/vomiting. LBM 09/07. Pt has had 75-100% recorded meal intake since admission. Pt was taking protein powder for her wound healing. RD rec to continue protein powder while she is in [facility]; pt was agreeable with plan. Will cont to monitor. Please consult as needed. Principal Problems/Diagnoses: 1. Methicillin-resistant Staphylococcus aureus bacteremia. 2. Paroxysmal atrial fibrillation, status post Watchman. PMH: ESRD on HD, DM, HTN, Afib GI: abdomen soft, non-tender, LBM 09/11 Skin: Sacral - Slow Healing, Stage IV Pressure Ulcer - Present on Admission/ diabetic foot ulcer per wound care note Labs: (09/11) BUN 46 H, Creatinine 6.33 h, Glucose 124 H (09/08) Na 133 L, BUN 42 H, Creatinine 5.76 H, Glucose 130 160 H Meds: protonix, abx, renvela, nephro-adrián Ht: 64in Wt: 232lb BMI: 39.8kg/m2 IBW: 120lb Malnutrition Evaluation (09/08) The patient does not meet criteria for a specified degree of malnutrition at this time. Will re-evaluate at follow-up as appropriate. Nutrition Prescription (Diet Order): renal/ ADA diet Estimated Nutritional Needs: Calories: 1375 1650kcal (25-30kcal/kg/d) Weight used: IBW Protein: 66 83g (1.2-1.5g/kg/d) Weight used: IBW Diet Adequacy: Meeting calorie needs, Not meeting protein needs Diet Education Needs Assessment: Diet education not indicated followed by RD at dialysis facility Nutrition Care Level: low Nutrition Diagnosis: Increased protein needs related to altered skin integrity as evidenced by stage IV pressure ulcer. Goal: Patient will meet 75-100% of estimated needs by follow up Progress: Progressing Interventions: Mineral/ carb-modified diet, Commercial food, Multivitamin/mineral supplement therapy Monitoring/Evaluation: Total energy intake, Total protein intake, Modified diet, supplement, Weight change Signed: Leyla Pablo MS, RD, LD
[2018-09-11] MEDS: EPOETIN ALFA 10000 UNIT/ML VIAL SC SCH (17:03)
[2018-09-11] MEDS: NYSTATIN 15 GM POWDER UD BTL TOP SCH (17:04)
--- NOTE | 2018-09-11 17:36 | Progress Note ---
DATE: 09/11/2018 Pulmonary Critical Care Progress Note SUBJECTIVE: The patient is afebrile. She had a transesophageal echocardiogram yesterday that showed some paravalvular leak, but no evidence of vegetation and normal functioning mitral valve. PHYSICAL EXAMINATION: VITAL SIGNS: The patient is afebrile. The blood pressure is 130/72 and the pulse is 99. Saturation is 94%. HEENT: No facial swelling or erythema. CARDIAC: Regular rate and rhythm with a normal S1 and S2. There are no murmurs or rubs. LUNGS: Auscultation of lungs reveals clear breath sounds bilaterally. There is no wheezing. ABDOMEN: Soft, nontender. There is no rebound or guarding. EXTREMITIES: No leg edema or calf tenderness. There is no cyanosis or clubbing. SKIN: No rashes. NEUROLOGICAL: No focal abnormalities. IMPRESSION: 1. Methicillin-resistant Staphylococcus aureus bacteremia. 2. End-stage renal disease. 3. Paroxysmal atrial fibrillation. 4. Hypertension. PLAN: 1. Case was discussed with Dr. Helm of CT Surgery. The patient is not an operative candidate at this time because of her multiple medical comorbidities. In addition, because the valve is still functioning, the risks of surgery would far outweigh any potential benefits. 2. Continue IV antibiotics. 3. Dialysis catheter was removed and a new access will be placed. 4. Continue to monitor blood counts. 5. Physical therapy. 6. Continue dialysis. Manan Wallace MD [facility]/MODL /[id number]
--- NOTE | 2018-09-11 18:30 | NUR ---
DIALYSIS IN PROCESS TOLERATING WELL
--- NOTE | 2018-09-11 19:00 | NUR ---
patient received awake, alert, lying quietly in bed. no c/o pain noted. iv heparin continues to infuse without difficulty. pm assessment complete. patient instructed to call for assistance when needed.
--- NOTE | 2018-09-11 20:12 | Progress Note ---
DATE: 09/11/2018 Cardiology Progress Note SUBJECTIVE: The patient denies chest pain or shortness of breath. OBJECTIVE: VITAL SIGNS: Temperature 97.2 degrees, pulse 99, respiratory rate 18, blood pressure 130/72, and oxygen saturation 94% on room air. GENERAL: Awake and alert, no acute distress. LUNGS: Clear to auscultation bilaterally. No wheezes or crackles. CARDIOVASCULAR: Normal rate, irregularly irregular. Mechanical S1. No murmur. ABDOMEN: Soft, nontender. EXTREMITIES: No edema. CARDIAC MEDICATIONS: Metoprolol tartrate 25 mg p.o. b.i.d., amiodarone 200 mg p.o. daily, atorvastatin 80 mg p.o. q.h.s., midodrine 10 mg p.o. t.i.d. as needed for dialysis. LABORATORY DATA: WBC 6.67, hemoglobin 8, hematocrit 27.8, and platelets 192. Sodium 139, potassium 4.7, chloride 103, CO2 of 24, BUN 46, and creatinine 6.33. BNP 607. TELEMETRY: Atrial fibrillation. IMPRESSION: 1. Methicillin-resistant Staphylococcus aureus bacteremia. 2. History of methicillin-resistant Staphylococcus aureus endocarditis, status post mechanical mitral valve replacement. 3. Paroxysmal atrial fibrillation, status post Watchman. 4. End-stage renal disease, on hemodialysis. 5. Hypertension. 6. Hyperlipidemia. 7. Subtherapeutic INR. RECOMMENDATIONS: Continue heparin drip given her mechanical mitral valve. Target INR is 2.5 to 3.5. Heparin drip can be temporally held for dialysis catheter insertion today, otherwise bridge to therapeutic INR once no further procedures are planned. KARIN revealed normally functioning mechanical mitral valve without evidence of vegetation. There does appear to be a mild paravalvular leak. We will request records from [facility]. Continue current cardiac medications. CV Surgery consultation is pending given findings on CT. Antibiotics per Infectious Disease. Monitor patient closely on telemetry. Volume management per Nephrology given end-stage renal disease requiring hemodialysis. Thank you for this consult. We will continue to follow. Leonila Loving MD [facility]/MODL /[id number]
[2018-09-11] MEDS: ATORVASTATIN 40 MG TAB PO SCH (21:00)
[2018-09-11] MEDS: SERTRALINE HCL 50 MG TAB PO SCH (21:00)
[2018-09-11] MEDS: MONTELUKAST SODIUM 10 MG TAB PO SCH (21:00)
--- NOTE | 2018-09-11 21:17 | Consultation ---
DATE OF CONSULTATION: 09/11/2018 REASON FOR CONSULTATION: Left heel ulcer, left hallux ulcer, and left 5th digit ulcer. HISTORY OF PRESENTING ILLNESS: This is a 57-year-old female with past medical history of type 2 diabetes, hypertension, end-stage renal disease on hemodialysis, and history of sepsis. The patient has a significant past medical history and is currently being treated for sepsis and endocarditis. She has a history of a mitral valve replacement with a metallic valve and likely central line infection. Podiatry is being consulted today for left foot multiple ulcers. She is currently being followed by Infectious Disease and Cardiology. She relates that she spends the majority of her time in a nursing facility for dialysis and wound care to the left lower extremity. She sees a knife setter grinder machine, cannot recall the name, who has biweekly wound debridements to the left foot. She relates no pain to her feet and no other pedal complaints at this time. PAST MEDICAL HISTORY: Type 2 diabetes, peripheral neuropathy, hypertension, end-stage renal disease, and history of multiple bouts of sepsis. PAST SURGICAL HISTORY: Right AV graft, mitral valve replacement, cholecystectomy, appendectomy, and repair of Chiari malformation 10 years ago. SOCIAL HISTORY: The patient denies smoking, denies drinking, denies any illicit drug usage. ALLERGIES: TO CODEINE. REVIEW OF SYSTEMS: The patient currently denies nausea, vomiting, fever, chills, chest pain, or shortness of breath. PHYSICAL EXAMINATION: GENERAL: Alert and oriented x3, in no apparent distress. VITAL SIGNS: Today, temperature 97.2, heart rate 99, respiratory rate 18, blood pressure 130/72, and pulse ox 94% on room air. PROBLEM FOCUSED LOWER EXTREMITY PHYSICAL EXAM: Vascular dorsalis pedis and posterior tibial pulses are nonpalpable. Capillary refill time is approximately 4-5 seconds to all digits. Negative erythema, edema, or warmth is noted to bilateral lower extremities. NEUROLOGIC: Sensation is absent to light touch bilateral. MUSCULOSKELETAL: Negative pain on palpation. DERMATOLOGIC: A deep posterior ulceration is noted to the posterior aspect of the patient's left heel. There are macerated borders with mild serous drainage present. A superficial eschar is noted to the lateral aspect of the 5th metatarsal base as well as the distal tip of the patient's right hallux. No local acute signs of infection to these last 2 wounds. LABORATORY DATA: White blood cell count is 6.6, hemoglobin 8.0, hematocrit 27.8, and platelet count is 192. Sodium 139, potassium 4.7, chloride 103, CO2 of 24, BUN 46, creatinine 6.33, glucose 176. Hemoglobin A1c is 5.7. ASSESSMENT: 1. Left heel stage II ulcer, left hallux stage I ulcer, left 5th digit stage I ulcer. 2. Type 2 diabetes, peripheral neuropathy. 3. Sepsis. 4. End-stage renal disease. PLAN: The patient was seen and evaluated, discussed condition and treatment options with the patient in detail. At this point, all 3 wounds remain stable and currently dressing changes are being done by Wound Care. We will continue IV antibiotics. Discussed the case with primary team, who relates that the patient will likely be discharged to [facility] within the next few days. The patient will need a wound debridement to all 3 areas of the left foot. We will order baseline x-rays to evaluate for a deeper bone infection. The Podiatry Service will continue to monitor as an inpatient. SCOTTIE Sidhu/ROSALINE /[id number]
[2018-09-12] VITALS (8 sets, daily range): BP systolic 114–134; BP diastolic 57–79
--- NOTE | 2018-09-12 02:56 | NUR ---
ptt 71.5. no change in heparin infusion at this time per heparin protocol.
[2018-09-12 03:03] LABS: BASOPHILS # (AUTO) 0.1 (0.0-0.1); EOSINOPHILS # (AUTO) 0.3 (0.0-0.4); HEMATOCRIT 29.6 % (34.2-44.1); HEMOGLOBIN 8.5 g/dL (12.0-16.0); LYMPHOCYTES # (AUTO) 1.8 (1.0-3.2); LYMPHOCYTES % 24.6 % (18.0-39.1); MEAN CORPUSCULAR HEMOGLOBIN 28.5 pg (28-32); MEAN CORPUSCULAR HGB CONC 28.7 g/dL (31-35); MEAN CORPUSCULAR VOLUME 99.3 fL (81-99); MONOCYTES # (AUTO) 0.4 (0.2-0.8); MONOCYTES % 5.3 % (4.4-11.3); NEUTROPHILS # (AUTO) 4.7 (2.1-6.9); NEUTROPHILS % 64.6 % (38.7-80.0); PLATELET COUNT 203 x10e3/uL (140-360); RED BLOOD COUNT 2.98 x10e6/uL (3.6-5.1); RED CELL DISTRIBUTION WIDTH 17.2 % (11.7-14.4)
[2018-09-12 03:13] LABS: INR 1.16; PROTHROMBIN TIME 15.4 seconds (11.9-14.5)
[2018-09-12 03:24] LABS: ANION GAP 14.8 mmol/L (8-16); CALCIUM 8.9 mg/dL (8.4-10.2); CREATININE, SERUM 4.06 mg/dL (0.57-1.11); MAGNESIUM 1.8 MG/DL (1.3-2.1); POTASSIUM 3.8 mmol/L (3.5-5.1)
[2018-09-12] MEDS: INSULIN REGULAR, HUMAN 100 UNIT/1 ML 3ML VIAL SQ SCH ×4 (07:30→21:00)
--- NOTE | 2018-09-12 07:30 | NUR ---
pt up in bed denies pain ,no distress noted.
[2018-09-12] MEDS: PANTOPRAZOLE SOD 40 MG TABEC PO SCH (08:30)
[2018-09-12] MEDS: POLYETHYLENE GLYCOL 3350 17 GM PACK PO SCH (09:00)
[2018-09-12] MEDS ORDERED: HEPARIN 25000UNITS/0.45% NS 250 ML BAG IV ONE (09:30)
[2018-09-12] MEDS: METOPROLOL TARTRATE 25 MG TAB PO SCH ×2 (09:38→17:00)
[2018-09-12] MEDS: SEVELAMER CARBONATE 800 MG TAB PO SCH ×3 (09:38→17:00)
[2018-09-12] MEDS: AMIODARONE HCL 200 MG TAB PO SCH (09:38)
[2018-09-12] MEDS: RIFAMPIN 300 MG CAP PO SCH (09:39)
[2018-09-12] MEDS: FOLIC ACID/CYANOCOB/PYRIDOXINE TAB PO SCH (09:39)
[2018-09-12] MEDS: NYSTATIN 15 GM POWDER UD BTL TOP SCH ×2 (09:39→17:00)
[2018-09-12] MEDS: HYDROCODONE/APAP 7.5MG-325MG 1 EA TAB PO PRN ×2 (10:25→19:00)
[2018-09-12] MEDS: SODIUM CHLORIDE 0.9% IV SCH (11:30)
[2018-09-12] MEDS: DAPTOMYCIN IV SCH (11:30)
[2018-09-12] MEDS: SODIUM CHLORIDE IV SCH (11:45)
[2018-09-12] MEDS: [UNRECOGNIZED DRUG - OTHER] IV SCH (11:45)
[2018-09-12] MEDS: HEPARIN IV SCH (11:45)
--- NOTE | 2018-09-12 12:00 | NUR ---
PHYSICAL THERAPY HERE AMBULATED PT IN ROOM WITH WALKER. TOLERATED WELL
[2018-09-12] MEDS: LACTOBACILLUS ACIDOPHILUS CAPSULE PO SCH ×2 (13:02→17:00)
--- NOTE | 2018-09-12 14:40 | Progress Note ---
DATE: 09/12/2018 Cardiology Progress Note SUBJECTIVE: The patient reports being quite tired this morning. Reports she did not sleep much last night. Denies any chest pain, shortness of breath, fever, or chills. Does endorse some pain in her left lower extremity. OBJECTIVE: VITAL SIGNS: Temperature 98.1, pulse 77, respiratory rate 19, blood pressure 114/57, and oxygen saturation 100% on 3 L nasal cannula. GENERAL: Alert and oriented x3. Resting comfortably in bed. Does not appear to be in any acute distress. LUNGS: Clear to auscultation throughout. No wheezing, rhonchi, or crackles. CARDIOVASCULAR: Irregular rate and rhythm. Mechanical S1 audible. ABDOMEN: Soft, nontender, rounded. LOWER EXTREMITIES: Trace edema bilaterally. Left lower extremity with trauma to the left big toe. CARDIOVASCULAR MEDICATIONS: Metoprolol 25 mg p.o. b.i.d., amiodarone 200 mg p.o. daily, atorvastatin 80 mg p.o. h.s., heparin IV drip, and midodrine 10 mg p.r.n. on dialysis days. LABS: WBC 7.32, hemoglobin 8.5, hematocrit 29.6, and platelets 203. Sodium 139, potassium 3.8, BUN 22, creatinine 4.06, and glucose 131. BNP 1146.7. PTT 71.5. TELEMETRY: Atrial fibrillation. IMPRESSION: 1. Methicillin-resistant Staphylococcus aureus bacteremia. 2. History of methicillin-resistant Staphylococcus aureus endocarditis, status post mechanical valve replacement. 3. Atrial fibrillation, status post Watchman. 4. End-stage renal disease, dependent on hemodialysis. 5. Hypertension. 6. Hyperlipidemia. 7. Supratherapeutic INR. RECOMMENDATIONS: Continue heparin drip given mechanical valve. Target of INR is 2.5 to 3.5. We will initiate warfarin to bridge with heparin at this time given recent infection of dialysis catheter. Recent KARIN revealed normal functioning mechanical valve without evidence of any vegetation. There appears to be a mild paravalvular leak. We have requested records from [facility]. Continue the above-listed cardiac medications. CV Surgery, Dr. Helm has been consulted due to the findings on CT scan. Antibiotic therapy per Infectious Disease. Maintain the patient on telemetry. The patient is being monitored by Nephrology given end-stage renal disease, requiring hemodialysis. Dictated by Ann Bedolla, RN [employer] MD ANDRE Vela/ROSALINE /[id number]
--- NOTE | 2018-09-12 15:31 | NUR ---
GRIS met with patient regarding physician's order for LTAC Evaluation, [facility]. GRIS informed patient regarding recommendation and educated her on her right to select the facility of choice. GRIS provided patient with list of LTAC Options and ALOC letter. According to patient she did not have a good experience at [facility]. GRIS/ EMMANUEL to follow up with patient's choice.
--- NOTE | 2018-09-12 17:36 | NUR ---
PT SITTING ON SIDE OF BED,NO DISTRESS NOTED,DENIES PAIN.
--- NOTE | 2018-09-12 19:00 | NUR ---
patient received awake, alert, lying quietly in bed. patient medicated with norco 7.5/325 mg po for c/o abd pain 12/07. iv heparin continues to infuse without difficulty. dressings to sacrum and left heel remains c,d,i. pm assessment complete. patient instructed to call for assistance when needed.
[2018-09-12] MEDS: ATORVASTATIN 40 MG TAB PO SCH (21:00)
[2018-09-12] MEDS: MONTELUKAST SODIUM 10 MG TAB PO SCH (21:00)
[2018-09-12] MEDS: SERTRALINE HCL 50 MG TAB PO SCH (21:00)
--- NOTE | 2018-09-12 21:00 | NUR ---
patient oob to chair with assistance. no further c/o pain noted at this time.
[2018-09-13 00:10] VITALS: BP 101/52
--- NOTE | 2018-09-13 02:45 | NUR ---
ptt 61.5. no change in heparin infusion at this time per heparin protocol.
[2018-09-13 02:49] LABS: BASOPHILS # (AUTO) 0.1 (0.0-0.1); BASOPHILS % 0.9 % (0.0-1.0); EOSINOPHILS # (AUTO) 0.3 (0.0-0.4); HEMATOCRIT 27.5 % (34.2-44.1); LYMPHOCYTES % 25.9 % (18.0-39.1); MEAN CORPUSCULAR HEMOGLOBIN 28.9 pg (28-32); MEAN CORPUSCULAR HGB CONC 29.1 g/dL (31-35); MEAN CORPUSCULAR VOLUME 99.3 fL (81-99); MONOCYTES # (AUTO) 0.5 (0.2-0.8); MONOCYTES % 6.1 % (4.4-11.3); NEUTROPHILS # (AUTO) 4.8 (2.1-6.9); NEUTROPHILS % 62.4 % (38.7-80.0); PLATELET COUNT 209 x10e3/uL (140-360); RED BLOOD COUNT 2.77 x10e6/uL (3.6-5.1)
[2018-09-13 03:04] LABS: INR 1.17; PROTHROMBIN TIME 15.5 seconds (11.9-14.5)
[2018-09-13 03:11] LABS: CALCIUM 8.8 mg/dL (8.4-10.2); CREATININE, SERUM 5.53 mg/dL (0.57-1.11)
[2018-09-13] MEDS ORDERED: HEPARIN 25000UNITS/0.45% NS 250 ML BAG IV ONE (05:58)
[2018-09-13] MEDS: SODIUM CHLORIDE IV SCH (05:59)
[2018-09-13] MEDS: HEPARIN IV SCH (05:59)
[2018-09-13] MEDS: [UNRECOGNIZED DRUG - OTHER] IV SCH (05:59)
[2018-09-13] MEDS: INSULIN REGULAR, HUMAN 100 UNIT/1 ML 3ML VIAL SQ SCH ×4 (07:30→21:00)
--- NOTE | 2018-09-13 07:35 | NUR ---
PT UP IN BED DENIES PAIN ,NO DISTRESS NOTED,
[2018-09-13] MEDS ORDERED: LORAZEPAM INJ 2 MG/ML VIAL IV PRN (07:45)
[2018-09-13 08:00] VITALS: BP 118/57
--- NOTE | 2018-09-13 08:45 | NUR ---
PT ASSISTED UP TO CHAIR TOLERATED WELL.
[2018-09-13] MEDS: AMIODARONE HCL 200 MG TAB PO SCH (09:12)
[2018-09-13] MEDS: SEVELAMER CARBONATE 800 MG TAB PO SCH ×3 (09:12→17:00)
[2018-09-13] MEDS: PANTOPRAZOLE SOD 40 MG TABEC PO SCH (09:12)
[2018-09-13] MEDS: METOPROLOL TARTRATE 25 MG TAB PO SCH ×2 (09:13→17:00)
[2018-09-13] MEDS: LACTOBACILLUS ACIDOPHILUS CAPSULE PO SCH ×2 (09:14→17:00)
[2018-09-13] MEDS: RIFAMPIN 300 MG CAP PO SCH (09:14)
[2018-09-13] MEDS: FOLIC ACID/CYANOCOB/PYRIDOXINE TAB PO SCH (09:14)
[2018-09-13] MEDS: NYSTATIN 15 GM POWDER UD BTL TOP SCH ×2 (09:14→16:43)
[2018-09-13 12:00] VITALS: BP 134/67
[2018-09-13] MEDS: HYDROCODONE/APAP 10MG-325MG TAB PO PRN ×2 (13:35→23:02)
--- NOTE | 2018-09-13 15:05 | NUR ---
GRIS met with patient and sister at the bedside to follow up with LTAC selection. Patient decided to go to [facility] in [place] [employer] in order to remain with the same medical doctors treating her right now. Patient signed ALOC and copy placed in chart. GRIS called [facility] to initiate referral. GRIS left message stating purpose of call and requested a call back.
--- NOTE | 2018-09-13 15:15 | Progress Note ---
DATE: 09/13/2018 Cardiology Progress Note SUBJECTIVE: The patient is without any complaints this morning. She reports that she feels well. Denies shortness of breath, chest pain, fever, or chills. OBJECTIVE: VITAL SIGNS: Temperature 97.2, pulse 80, respiratory rate 18, blood pressure 134/67, oxygen saturation 100% on 3 L nasal cannula. GENERAL: Alert and oriented x3, resting comfortably in the chair, does not appear to be in any acute distress. LUNGS: Clear to auscultation throughout. No wheezing or rhonchi or crackles noted. CARDIOVASCULAR: Irregular rate and rhythm. Mechanical S1 noted. No gallops or murmurs. ABDOMEN: Soft, nontender. LOWER EXTREMITY: Trace edema bilaterally. CARDIOVASCULAR MEDICATIONS: Metoprolol 25 mg p.o. b.i.d., heparin IV drip, atorvastatin 80 mg p.o. at bedtime, midodrine 10 mg p.o. on dialysis days. LABORATORY DATA: WBC 7.69, hemoglobin 8.0, hematocrit 27.2, platelets 209. Sodium 139, potassium 4.0, BUN 31, creatinine 5.53, calcium 8.8. BNP 1127.1. TELEMETRY: Atrial fibrillation. IMPRESSION: 1. Methicillin-resistant Staphylococcus aureus bacteremia. 2. 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 3. Atrial fibrillation status post Watchman. 4. End-stage renal disease, dependent on hemodialysis. 5. Hypertension. 6. Hyperlipidemia. 7. Supratherapeutic INR. RECOMMENDATION: Continue heparin drip given a mechanical valve. The target for INR is 2.5 to 3.5. We will initiate warfarin to bridge with heparin. Recent KARIN revealed normal functioning mechanical valve without any evidence of vegetation. There appears to be a mild paravalvular leak. We have requested records from [facility]. Continue with the above-listed cardiac medication. Dr. Helm has been consulted in this case. Antimicrobial therapy per Infectious Disease. Maintain on telemetry. Dictated by Ann Bedolla NP MD ANDRE Vela/ROSALINE /[id number]
--- NOTE | 2018-09-13 15:44 | NUR ---
Sw received call back from Allie, someone will come to evaluate patient tomorrow. Clinical faxed to [phone]
--- NOTE | 2018-09-13 15:50 | NUR ---
Visit made by the Spiritual Care Department Pastoral Visitor, Katty Onofre. PV provided pastoral presence, hospitality, and supportive listening. Pastoral Visitor informed pt/family of the scope of Restaurant Worker Services and availability. TRES GARCIA Material Control Specialist Spiritual Care Department O: [phone] Pager: [phone] ([phone] calling from)
[2018-09-13 16:00] VITALS: BP 142/72
[2018-09-13] MEDS: WARFARIN SOD 3 MG TAB PO SCH (17:00)
--- NOTE | 2018-09-13 19:00 | NUR ---
patient received awake, alert, sitting up on side of bed. no c/o pain noted. pm assessment complete. patient instructed to call for assistance when needed.
[2018-09-13 20:00] VITALS: BP 146/81
[2018-09-13 20:10] VITALS: BP 146/81
[2018-09-13] MEDS: SERTRALINE HCL 50 MG TAB PO SCH (21:00)
[2018-09-13] MEDS: ATORVASTATIN 40 MG TAB PO SCH (21:00)
[2018-09-13] MEDS: MONTELUKAST SODIUM 10 MG TAB PO SCH (21:00)
[2018-09-14 00:57] VITALS: BP 147/82
[2018-09-14 02:58] LABS: BASOPHILS # (AUTO) 0.1 (0.0-0.1); EOSINOPHILS # (AUTO) 0.3 (0.0-0.4); EOSINOPHILS % 3.8 % (0.0-6.0); HEMATOCRIT 27.2 % (34.2-44.1); HEMOGLOBIN 7.9 g/dL (12.0-16.0); LYMPHOCYTES # (AUTO) 1.9 (1.0-3.2); LYMPHOCYTES % 23.7 % (18.0-39.1); MEAN CORPUSCULAR HEMOGLOBIN 28.9 pg (28-32); MEAN CORPUSCULAR VOLUME 99.6 fL (81-99); MONOCYTES # (AUTO) 0.5 (0.2-0.8); MONOCYTES % 6.4 % (4.4-11.3); NEUTROPHILS # (AUTO) 5.1 (2.1-6.9); NEUTROPHILS % 64.6 % (38.7-80.0); PLATELET COUNT 230 x10e3/uL (140-360); RED BLOOD COUNT 2.73 x10e6/uL (3.6-5.1); RED CELL DISTRIBUTION WIDTH 17.3 % (11.7-14.4)
--- NOTE | 2018-09-14 03:00 | NUR ---
ptt 79.9. no change in heparin infusion per heparin protocol.
[2018-09-14 03:18] LABS: CALCIUM 8.7 mg/dL (8.4-10.2); CREATININE, SERUM 6.96 mg/dL (0.57-1.11)
[2018-09-14] MEDS: [UNRECOGNIZED DRUG - OTHER] IV SCH (04:46)
[2018-09-14] MEDS: SODIUM CHLORIDE IV SCH (04:46)
[2018-09-14] MEDS: HEPARIN IV SCH (04:46)
[2018-09-14] MEDS ORDERED: HEPARIN 25000UNITS/0.45% NS 250 ML BAG IV ONE (04:47)
[2018-09-14 04:58] LABS: INR 1.07; PROTHROMBIN TIME 14.4 seconds (11.9-14.5)
[2018-09-14 05:00] LABS: PARTIAL THROMBOPLASTIN TIME 79.9 seconds (23.8-35.5)
--- NOTE | 2018-09-14 07:18 | NUR ---
PATIENT ASSISTED TO THE RESTROOM AND BACK TO BED. DRESSING DRY AND INTACT TO LEFT FOOT AND SACRUM. BED IN LOWER POSITION, CALL LIGHT AT REACH.
[2018-09-14 07:19] VITALS: BP 139/80
[2018-09-14] MEDS: PANTOPRAZOLE SOD 40 MG TABEC PO SCH (07:30)
[2018-09-14] MEDS: INSULIN REGULAR, HUMAN 100 UNIT/1 ML 3ML VIAL SQ SCH ×4 (07:30→21:00)
[2018-09-14 08:00] VITALS: BP 139/80
[2018-09-14] MEDS: SEVELAMER CARBONATE 800 MG TAB PO SCH ×3 (08:00→17:15)
--- NOTE | 2018-09-14 08:30 | NUR ---
DR CROOK NOTIFIED OF H/H OF .03/26.2, ORDER RECEIVED TO CONTINUE EPOGEN SC M/W/F.
[2018-09-14] MEDS: LACTOBACILLUS ACIDOPHILUS CAPSULE PO SCH ×2 (09:00→17:15)
[2018-09-14] MEDS: METOPROLOL TARTRATE 25 MG TAB PO SCH ×2 (09:00→17:15)
[2018-09-14] MEDS ORDERED: HEPARIN SOD (PORCINE) 1000 UNIT/ML SDV IV PRN (09:15)
[2018-09-14] MEDS ORDERED: ALBUMIN 25% 12.5GM 0.25 GM/ML BTL IV PRN (09:15)
[2018-09-14] MEDS: NYSTATIN 15 GM POWDER UD BTL TOP SCH ×2 (09:34→17:15)
--- NOTE | 2018-09-14 11:00 | NUR ---
BED SIDE HEMODIALYSIS IN PROGRESS. PATIENT IN BED WITH CALL LIGHT AT REACH.
[2018-09-14 11:05] VITALS: BP 137/78
[2018-09-14] MEDS: AMIODARONE HCL 200 MG TAB PO SCH (12:34)
[2018-09-14] MEDS: FOLIC ACID/CYANOCOB/PYRIDOXINE TAB PO SCH (12:34)
[2018-09-14] MEDS: RIFAMPIN 300 MG CAP PO SCH (12:34)
--- NOTE | 2018-09-14 13:08 | NUR ---
PATIENT GOING TO [facility]. NO NEED FOR IMM AT THIS TIME
--- NOTE | 2018-09-14 13:23 | NUR ---
BED SIDE HEMODIALYSIS COMPLETED. 2.5 LITERS REMOVED PER DIALYSIS NURSE. B/P 155/84, HR 84.
[2018-09-14] MEDS: SODIUM CHLORIDE 0.9% IV SCH (14:00)
[2018-09-14] MEDS: HYDROCODONE/APAP 10MG-325MG TAB PO PRN (14:00)
[2018-09-14] MEDS: DAPTOMYCIN IV SCH (14:00)
--- NOTE | 2018-09-14 14:39 | NUR ---
No IMM needed. Pt going to [facility] when accepted. CM spoke to Mirna Zamora, liaison with [facility]. She is still awaiting hospital acceptance. Pt will be in life time reserve. Mirna did speak to pt regarding this, and she agrees to use LTR. [address] [place] [address] Mirna Zamora, liaison [phone]
[2018-09-14 15:09] VITALS: BP 157/72
--- NOTE | 2018-09-14 15:29 | NUR ---
PATIENT ASSISTED TO THE RESTROOM AND BACK TO CHAIR. ALL PERSONAL ITEMS CLOSE TO PATIENT, CALL LIGHT AT REACH.
--- NOTE | 2018-09-14 17:11 | Progress Note ---
DATE: 09/14/2018 Pulmonary Progress Note SUBJECTIVE: The patient underwent dialysis today. She is not complaining of chest pain or dyspnea. She has no fevers. PHYSICAL EXAMINATION: VITAL SIGNS: The blood pressure is 137/78 and the saturation is 97% on 2 L. HEENT: Shows no facial swelling or erythema. Nasal mucosa is normal. LYMPHATIC: Shows no submandibular, cervical, or supraclavicular adenopathy. CARDIAC: Reveals a regular rate and rhythm with a normal S1 and S2. There are no murmurs or rubs. LUNGS: Auscultation of lungs reveals rhonchorous breath sounds bilaterally. There is no wheezing. ABDOMEN: Soft and nontender. There is no rebound or guarding. EXTREMITIES: Show a wound on the right foot. IMPRESSION: 1. Methicillin-resistant Staphylococcus aureus bacteremia. 2. Prosthetic valve. 3. Paroxysmal atrial fibrillation. 4. End-stage renal disease. 5. Hypertension. PLAN: 1. The patient is on heparin and was started on Coumadin today. Once the INR is therapeutic, the heparin can be stopped. 2. Continue IV antibiotics. 3. Continue to attend to the wound in the foot. 4. Continue dialysis. Manan Wallace MD LM/TYREEL /[id number]
[2018-09-14] MEDS: WARFARIN SOD 3 MG TAB PO SCH (17:14)
--- NOTE | 2018-09-14 19:18 | NUR ---
ROUNDS DONE, PATIENT RESTING IN BED, NO DISTRESS NOTED. WILL CONTINUE TO MONITOR.
--- NOTE | 2018-09-14 19:53 | Progress Note ---
DATE: 09/14/2018 Cardiology Progress Note SUBJECTIVE: The patient denies chest pain or shortness of breath. She was seen during hemodialysis. OBJECTIVE: VITAL SIGNS: Temperature 97.4 degrees, pulse 82, respiratory rate 18, blood pressure 137/70, oxygen saturation 97% on 3 L nasal cannula. GENERAL: Awake, alert, in no distress. LUNGS: Clear to auscultation bilaterally. No wheezes or crackles. CARDIOVASCULAR: Irregularly irregular. Normal rate. Mechanical S1. No murmur. ABDOMEN: Soft, nontender. EXTREMITIES: No edema. CARDIAC MEDICATIONS: Metoprolol tartrate 25 mg p.o. b.i.d., warfarin 3 mg p.o. daily, amiodarone 200 mg p.o. daily, atorvastatin 80 mg p.o. at bedtime, midodrine 10 mg p.o. q.8 hours on dialysis days. LABORATORY DATA: WBC 7.96, hemoglobin 7.9, hematocrit 27.2, platelets 230. Sodium 139, potassium 4, chloride 101, CO2 of 26, BUN 38, creatinine 6.96. BNP 1124. TELEMETRY: Atrial fibrillation. IMPRESSION: 1. Methicillin-resistant Staphylococcus aureus bacteremia. 2. History of methicillin-resistant Staphylococcus aureus endocarditis, status post mechanical mitral valve replacement. 3. Atrial fibrillation, status post Watchman. 4. End-stage renal disease, on hemodialysis. 5. Hypertension. 6. Hyperlipidemia. 7. Subtherapeutic INR. RECOMMENDATIONS: Continue heparin drip given the mechanical mitral valve, bridge to therapeutic INR, target is 2.5 to 3.5 given mechanical mitral valve. KARIN revealed normally functioning mechanical mitral valve without evidence of vegetation. There does appear to be a mild paravalvular leak. Records have been requested from [facility]. Continue current cardiac medications otherwise. CV Surgery consultation is pending given findings on CT. Antibiotics per Infectious Disease. Monitor the patient closely on telemetry. Volume management per Nephrology for end-stage renal disease. Thank you for this consult. We will continue to follow. Leonila Loving MD ABS/MODL /[id number]
[2018-09-14 20:00] VITALS: BP 147/96
[2018-09-14] MEDS: SERTRALINE HCL 50 MG TAB PO SCH (21:07)
[2018-09-14] MEDS: ATORVASTATIN 40 MG TAB PO SCH (21:07)
[2018-09-14] MEDS: MONTELUKAST SODIUM 10 MG TAB PO SCH (21:07)
[2018-09-14] MEDS: EPOETIN ALFA 10000 UNIT/ML VIAL SC SCH (22:45)
[2018-09-15] VITALS (8 sets, daily range): BP systolic 122–153; BP diastolic 63–96
[2018-09-15] MEDS ORDERED: HEPARIN 25000UNITS/0.45% NS 250 ML BAG IV ONE (02:52)
[2018-09-15] MEDS: SODIUM CHLORIDE IV SCH ×2 (02:56→20:15)
[2018-09-15] MEDS: HEPARIN IV SCH ×2 (02:56→20:15)
[2018-09-15] MEDS: [UNRECOGNIZED DRUG - OTHER] IV SCH ×2 (02:56→20:15)
[2018-09-15 04:18] LABS: BASOPHILS # (AUTO) 0.1 (0.0-0.1); BASOPHILS % 0.9 % (0.0-1.0); EOSINOPHILS # (AUTO) 0.4 (0.0-0.4); EOSINOPHILS % 4.8 % (0.0-6.0); HEMATOCRIT 30.2 % (34.2-44.1); HEMOGLOBIN 8.7 g/dL (12.0-16.0); LYMPHOCYTES # (AUTO) 1.8 (1.0-3.2); LYMPHOCYTES % 22.7 % (18.0-39.1); MEAN CORPUSCULAR HEMOGLOBIN 28.8 pg (28-32); MEAN CORPUSCULAR HGB CONC 28.8 g/dL (31-35); MONOCYTES # (AUTO) 0.6 (0.2-0.8); MONOCYTES % 6.9 % (4.4-11.3); NEUTROPHILS # (AUTO) 5.1 (2.1-6.9); NEUTROPHILS % 64.2 % (38.7-80.0); PLATELET COUNT 208 x10e3/uL (140-360); RED BLOOD COUNT 3.02 x10e6/uL (3.6-5.1); RED CELL DISTRIBUTION WIDTH 17.3 % (11.7-14.4)
[2018-09-15 04:33] LABS: ANION GAP 14.3 mmol/L (8-16); CALCIUM 9.5 mg/dL (8.4-10.2); CREATININE, SERUM 5.11 mg/dL (0.57-1.11); MAGNESIUM 1.9 MG/DL (1.3-2.1); POTASSIUM 4.3 mmol/L (3.5-5.1)
--- NOTE | 2018-09-15 05:04 | NUR ---
PATIENT CONTINUE RESTING, DRESSING REMAIN INTACT TO HER LEFT HEEL AND SACRUM AREA. NO COMPLAINTS OF PAIN, HEPARIN CONTINUE INFUSING, CALL LIGHT REMAIN IN REACH. WILL CONTINUE TO MONITOR.
[2018-09-15 06:00] LABS: ANISOCYTOSIS MODERATE; HYPOCHROMASIA MODERATE; PLATELET ESTIMATE ADEQUATE; PLATELET MORPHOLOGY COMMENT NORMAL; RBC MORPHOLOGY COMMENT ABNORMAL
--- NOTE | 2018-09-15 07:04 | NUR ---
PATIENT RESTING IN BED, NO DISTRESS NOTED. ROUNDS DONE. WILL CONTINUE TO MONITOR.
--- NOTE | 2018-09-15 07:18 | NUR ---
PATIENT IN BED RESTING WITH NO RESPIRATORY DISTRESS. CPAP IN PLACE, DRESSING INTACT TO LEFT FOOT. BED IN LOWER POSITION, CALL LIGHT AT REACH.
[2018-09-15] MEDS: INSULIN REGULAR, HUMAN 100 UNIT/1 ML 3ML VIAL SQ SCH ×4 (07:30→20:17)
[2018-09-15] MEDS: PANTOPRAZOLE SOD 40 MG TABEC PO SCH (07:50)
[2018-09-15] MEDS: SEVELAMER CARBONATE 800 MG TAB PO SCH ×3 (08:41→17:33)
[2018-09-15] MEDS: ALBUTEROL SULFATE HFA 8GM INHALATION AEROSOL INH PRN (08:45)
[2018-09-15] MEDS: METOPROLOL TARTRATE 25 MG TAB PO SCH ×2 (09:41→17:33)
[2018-09-15] MEDS: AMIODARONE HCL 200 MG TAB PO SCH (09:41)
[2018-09-15] MEDS: FOLIC ACID/CYANOCOB/PYRIDOXINE TAB PO SCH (09:41)
[2018-09-15] MEDS: RIFAMPIN 300 MG CAP PO SCH (09:42)
[2018-09-15] MEDS: LACTOBACILLUS ACIDOPHILUS CAPSULE PO SCH ×2 (09:42→17:33)
[2018-09-15] MEDS: NYSTATIN 15 GM POWDER UD BTL TOP SCH ×2 (09:42→17:33)
--- NOTE | 2018-09-15 10:26 | NUR ---
SPOKE WITH [facility] OGLESBY FOR DR MUIR TODAY STATES PT CAN BE DISCHARGED WHEN MOT SECURED FROM [facility]; JUST CALL FOR DC ORDERS SPOKE WITH ALEX AT [facility] STATES ADMINISTRATION IS REVIEWING FOR ACCEPTANCE PT HAS ONLY 49 LIFETIME RESERVE DAYS AND IS ON CUBACIN FOR 8 WEEKS TOTAL CM TO FOLLOW
--- NOTE | 2018-09-15 11:09 | NUR ---
PATIENT ASSISTED WITH SHOWER AND BACK TO BED, CALL LIGHT AT REACH.
--- NOTE | 2018-09-15 11:20 | Progress Note ---
DATE: 09/15/2018 SUBJECTIVE: This is a 57-year-old female with past medical history of type 2 diabetes, hypertension, end-stage renal disease, on hemodialysis and sepsis, who is being treated for a left heel, left 5th digit, and left hallux ulceration. The patient remained resting in bed with no acute issues overnight. No other pedal complaints at this time. OBJECTIVE: VITAL SIGNS: Today, temperature 98.5, heart rate 70, respiratory rate 20, blood pressure 144/79, and pulse ox is 100% nasal cannula. PROBLEM FOCUSED LOWER EXTREMITY PHYSICAL EXAM: VASCULAR: Dorsalis pedis and posterior tibial pulses are nonpalpable. Capillary refill time approximately 4-5 seconds in all digits. Negative erythema, edema, and warmth is noted to bilateral lower extremities. Sensation is absent to light touch. MUSCULOSKELETAL: Negative pain on palpation. DERMATOLOGICAL: Three ulcerations are noted at this time. 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 A superficial eschar is noted to the lateral aspect of the 5th metatarsal base, which is stable as well as at the distal tip of the patient's right hallux, which is stable. No local acute signs of infection. LABS: White blood cell count is 7.9, hemoglobin 8.7, hematocrit 30.2, platelet count 208. Sodium 138, potassium 4.3, chloride 101, carbon dioxide 22, BUN 23, creatinine 5.11. IMAGING: Right foot x-ray reveals mild erosive changes to the distal phalanx of the 2nd digit. ASSESSMENT: 1. Left heel stage II ulcer, left hallux and left 5th digit stage I ulcer. Type 2 diabetes, peripheral neuropathy. 2. Sepsis. 3. End-stage renal disease. PLAN: The patient was seen and evaluated, discussed condition and treatment options with the patient in detail. All three wounds remain stable and dressing changes are being performed by Wound Care to the left heel. Recommend Hydrogel dressing change to the right hallux on the left 5th metatarsal head. According to the primary team, patient will be discharged to [facility], which we will follow there and would likely require wound debridements. X-rays reveal erosive changes to the patient's left distal phalanx. However, there is no wound and no local acute signs of infection in this area. We will continue to monitor. The Podiatry Service will continue to monitor as an inpatient. SCOTTIE Sidhu/ROSALINE /[id number]
[2018-09-15] MEDS: HYDROCODONE/APAP 10MG-325MG TAB PO PRN (12:10)
--- NOTE | 2018-09-15 15:30 | NUR ---
PATIENT AMBULATED IN ROOM WITH PHYSICAL THERAPY, BACK TO CHAIR. CALL LIGHT AT REACH.
[2018-09-15] MEDS: WARFARIN SOD 3 MG TAB PO SCH (17:33)
--- NOTE | 2018-09-15 19:00 | NUR ---
patient received awake, alert, sitting up in chair at the bedside. no c/o pain noted. iv heparin continues to infuse without difficulty. pm assessment complete. patient instructed to call for assistance when needed.
--- NOTE | 2018-09-15 19:30 | NUR ---
ptt 45.7 heparin drip increased by 100 units/hr. next ptt in 6 hrs at 0130.
[2018-09-15] MEDS: MONTELUKAST SODIUM 10 MG TAB PO SCH (20:16)
[2018-09-15] MEDS: SERTRALINE HCL 50 MG TAB PO SCH (20:16)
[2018-09-15] MEDS: ATORVASTATIN 40 MG TAB PO SCH (20:16)
--- NOTE | 2018-09-15 20:44 | Progress Note ---
DATE: 09/15/2018 Cardiology Progress Note SUBJECTIVE: The patient denies chest pain or shortness of breath. OBJECTIVE: VITAL SIGNS: Temperature 97.4 degrees, pulse 87, respiratory rate 18, blood pressure 148/95, and oxygen saturation 100% on 3 L nasal cannula. GENERAL: Awake, alert, in no acute distress. LUNGS: Clear to auscultation bilaterally. No wheezes or crackles. CARDIOVASCULAR: Normal rate, irregularly irregular. No murmur. Mechanical S1. ABDOMEN: Soft, nontender. EXTREMITIES: No edema. CARDIAC MEDICATIONS: Metoprolol tartrate 25 mg p.o. b.i.d., amiodarone 200 mg p.o. daily, atorvastatin 80 mg p.o. q.h.s., and warfarin 3 mg p.o. daily. LABORATORY DATA: WBC 7.93, hemoglobin 8.7, hematocrit 30.2, and platelets 208. Sodium 138, potassium 4.3, chloride 101, CO2 27, BUN 23, creatinine 5.11. BNP 1035. TELEMETRY: Atrial fibrillation. IMPRESSION: 1. Methicillin-resistant Staphylococcus aureus bacteremia. 2. History of methicillin-resistant Staphylococcus aureus endocarditis, status post mechanical mitral valve replacement. 3. Atrial fibrillation, status post Watchman. 4. End-stage renal disease, on hemodialysis. 5. Hypertension. 6. Hyperlipidemia. 7. Subtherapeutic INR. RECOMMENDATIONS: Continue heparin drip given mechanical mitral valve bridge to therapeutic INR, target of 2.5 to 3.5. KARIN revealed normally functioning mechanical mitral valve without evidence of vegetation. There does appear to be a mild paravalvular leak. Records have been requested from [facility]. Continue current cardiac medications. CV Surgery consultation is pending given findings on CT chest. Antibiotics per Infectious Disease. Monitor the patient closely on telemetry. Volume management per Nephrology given end-stage renal disease. She would likely benefit from further ultrafiltration. Thank you for this consult. We will continue to follow. Leonila Loving MD ABS/MODL /[id number]
[2018-09-15] MEDS ORDERED: MELATONIN 5 MG TABLET PO PRN (21:00)
[2018-09-16] VITALS (7 sets, daily range): BP systolic 125–170; BP diastolic 66–101
--- NOTE | 2018-09-16 02:00 | NUR ---
ptt 61.8 no change in heparin infusion rate at this time. next ptt in 6 hrs per heparin protocol.
[2018-09-16 02:05] LABS: BASOPHILS # (AUTO) 0.1 (0.0-0.1); BASOPHILS % 0.8 % (0.0-1.0); EOSINOPHILS # (AUTO) 0.3 (0.0-0.4); EOSINOPHILS % 4.2 % (0.0-6.0); HEMATOCRIT 29.4 % (34.2-44.1); HEMOGLOBIN 8.6 g/dL (12.0-16.0); LYMPHOCYTES # (AUTO) 1.8 (1.0-3.2); MEAN CORPUSCULAR HEMOGLOBIN 29.2 pg (28-32); MEAN CORPUSCULAR HGB CONC 29.3 g/dL (31-35); MEAN CORPUSCULAR VOLUME 99.7 fL (81-99); MONOCYTES # (AUTO) 0.6 (0.2-0.8); MONOCYTES % 7.7 % (4.4-11.3); NEUTROPHILS # (AUTO) 4.6 (2.1-6.9); NEUTROPHILS % 62.8 % (38.7-80.0); PLATELET COUNT 198 x10e3/uL (140-360); RED BLOOD COUNT 2.95 x10e6/uL (3.6-5.1); RED CELL DISTRIBUTION WIDTH 17.5 % (11.7-14.4)
[2018-09-16 02:24] LABS: ANION GAP 14.7 mmol/L (8-16); CALCIUM 9.8 mg/dL (8.4-10.2); CREATININE, SERUM 6.47 mg/dL (0.57-1.11); MAGNESIUM 2.1 MG/DL (1.3-2.1); POTASSIUM 4.7 mmol/L (3.5-5.1)
--- NOTE | 2018-09-16 07:26 | NUR ---
PTT 61.8 NO CHANGE IN RATE .PTT IN AM Addendum: 09/16/18 at 0941 by Teagan Orourke LVN wrong lab results
[2018-09-16] MEDS: ALBUTEROL SULFATE HFA 8GM INHALATION AEROSOL INH PRN ×2 (07:29→19:22)
[2018-09-16] MEDS: INSULIN REGULAR, HUMAN 100 UNIT/1 ML 3ML VIAL SQ SCH ×4 (07:30→21:00)
--- NOTE | 2018-09-16 07:30 | NUR ---
PT IN BED SLEEPING ,CPAP IN PLACE,NO S/S DISCOMFORT
--- NOTE | 2018-09-16 08:00 | NUR ---
PTT 87.7 DECRESAED RATE TO 1300,LABS PTT AT 1400
[2018-09-16] MEDS: SEVELAMER CARBONATE 800 MG TAB PO SCH ×3 (09:19→17:00)
[2018-09-16] MEDS: PANTOPRAZOLE SOD 40 MG TABEC PO SCH (09:19)
[2018-09-16] MEDS: AMIODARONE HCL 200 MG TAB PO SCH (09:19)
[2018-09-16] MEDS: FOLIC ACID/CYANOCOB/PYRIDOXINE TAB PO SCH (09:20)
[2018-09-16] MEDS: RIFAMPIN 300 MG CAP PO SCH (09:20)
[2018-09-16] MEDS: LACTOBACILLUS ACIDOPHILUS CAPSULE PO SCH ×2 (09:20→17:00)
[2018-09-16] MEDS: NYSTATIN 15 GM POWDER UD BTL TOP SCH ×2 (09:20→17:00)
[2018-09-16] MEDS: METOPROLOL TARTRATE 25 MG TAB PO SCH ×2 (09:20→17:00)
[2018-09-16] MEDS: HYDROCODONE/APAP 10MG-325MG TAB PO PRN ×2 (12:17→21:00)
--- NOTE | 2018-09-16 14:34 | Progress Note ---
DATE: 09/16/2018 Cardiology Progress Note SUBJECTIVE: The patient denies chest pain or shortness of breath. OBJECTIVE: VITAL SIGNS: Temperature 96.7 degrees, pulse 89, respiratory rate 20, blood pressure 131/66, and oxygen saturation 99% on room air. GENERAL: Awake, alert, in no acute distress. LUNGS: Clear to auscultation bilaterally. No wheezes or crackles. CARDIOVASCULAR: Normal rate, irregularly irregular. No murmur. Mechanical S1. ABDOMEN: Soft, nontender. EXTREMITIES: No edema. CARDIAC MEDICATIONS: Metoprolol tartrate 25 mg p.o. b.i.d., amiodarone 200 mg p.o. daily, atorvastatin 80 mg p.o. at bedtime, heparin drip, warfarin 3 mg p.o. daily, midodrine 10 mg p.o. t.i.d. p.r.n. LABS: WBC 7.38, hemoglobin 8.6, hematocrit 29.4, platelets 198. Sodium 135, potassium 4.7, chloride 99, CO2 of 26, BUN 32, creatinine 6.47. BNP 780. TELEMETRY: Atrial fibrillation. IMPRESSION: 1. Methicillin-resistant Staphylococcus aureus bacteremia. 2. History of methicillin-resistant Staphylococcus aureus endocarditis, status post mechanical mitral valve replacement. 3. Atrial fibrillation, status post Watchman. 4. End-stage renal disease, on hemodialysis. 5. Hypertension. 6. Hyperlipidemia. 7. Subtherapeutic INR. RECOMMENDATIONS: Continue heparin drip given mechanical mitral valve. Bridge to therapeutic INR with target of 2.5 to 3.5. KARIN revealed normally functioning mechanical mitral valve without evidence of vegetation, there does appear to be a mild paravalvular leak. Records have been requested from [facility]. Continue current cardiac medications. CV consultation has been requested given findings on CT chest. Antibiotics per Infectious Disease. Monitor the patient closely on telemetry. Volume management per Nephrology given end-stage renal disease. She would benefit from further ultrafiltration. Wound care per Podiatry. Thank you for this consult. We will continue to follow. Leonila Loving MD ABS/MODL /[id number]
[2018-09-16 14:36] LABS: INR 1.25; PROTHROMBIN TIME 16.3 seconds (11.9-14.5)
[2018-09-16 14:37] LABS: PARTIAL THROMBOPLASTIN TIME 64.5 seconds (23.8-35.5)
--- NOTE | 2018-09-16 14:45 | NUR ---
APPROVAL FOR [facility] ROOM 312 REC'D MOT INITIATED SIGNED AND PLACED IN ENVELOPE ON CHART PT TO TRANSFER TODAY AFTER DIALYSIS NURSE LUANN AWARE AND CALLING [facility] FOR DC ORDER
[2018-09-16] MEDS ORDERED: VANCOMYCIN 1GM/NS 250 ML 250 ML IV SCH (15:00)
--- NOTE | 2018-09-16 15:19 | Progress Note ---
DATE: 09/16/2018 Pulmonary Progress Note SUBJECTIVE: The patient is not having fevers. She is not complaining of cough for difficulty breathing. PHYSICAL EXAMINATION: VITAL SIGNS: The patient is afebrile. The vital signs are stable. HEENT: Shows no facial swelling or erythema. The nasal mucosa is normal. The oropharynx is normal. LYMPHATIC: Shows no submandibular, cervical, or supraclavicular adenopathy. CARDIAC: Reveals a regular rate and rhythm with a normal S1 and S2. There are no murmurs or rubs. LUNGS: Auscultation of lungs reveals rhonchorous breath sounds bilaterally. There is no wheezing. ABDOMEN: Soft and nontender. There is no rebound or guarding. IMPRESSION: 1. Methicillin-resistant Staphylococcus aureus bacteremia. 2. History of Staph endocarditis. 3. Paroxysmal atrial fibrillation. 4. End-stage renal disease. 5. Hypertension. PLAN: 1. Continue current antibiotics. 2. Continue anticoagulation. 3. Continue dialysis. 4. Arrange disposition. Manan Wallace MD [facility]/MODL /[id number]
[2018-09-16] MEDS: WARFARIN SOD 3 MG TAB PO SCH (17:00)
--- NOTE | 2018-09-16 18:25 | NUR ---
DIALYSIS NURSE HERE TO START DIALYSIS,PT UP IN BED NO DISTRESS NTOED
--- NOTE | 2018-09-16 19:05 | NUR ---
Bedside rounds completed with morning nurse. Pt alert to name. Lying in bed HOB 45 degrees. c/o mod headache, will provide pain med. Call bray within reach. Will continue to monitor.
--- NOTE | 2018-09-16 19:15 | Discharge Summary ---
ADMISSION DIAGNOSES: Sepsis, fever, end-stage renal disease with volume overload, acute on chronic diastolic congestive heart failure, chronic atrial fibrillation, hypertension with congestive heart failure and end-stage renal disease, type 2 diabetes with end-stage renal disease, morbid obesity, presence of mechanical mitral valve replacement, type 2 diabetes with coronary artery disease and diabetic foot ulcers. DISCHARGE DIAGNOSES: Sepsis, fever, end-stage renal disease with volume overload, acute on chronic diastolic congestive heart failure, chronic atrial fibrillation, hypertension with congestive heart failure and end-stage renal disease, type 2 diabetes with end-stage renal disease, morbid obesity, presence of mechanical mitral valve replacement, type 2 diabetes with coronary artery disease and diabetic foot ulcers, and methicillin-resistant Staphylococcus aureus bacteremia. HISTORY: The patient has a history of type 2 diabetes; hypertension; end-stage renal disease with dialysis Friday, Friday, Friday; graft removal and MVR for endocarditis 6 months ago. HD catheter placed, then changed 1 week prior to admission. SURGICAL HISTORY: MVR surgery, AV fistula surgery, cholecystectomy, and appendectomy. HOSPITAL COURSE: A 57-year-old female with fever for 24 hours, admitted to the ER. She was started on vancomycin and cefepime. Nephrology was consulted for dialysis. The patient had an echo that showed EF of 50% to 55%. EKG on admission showed atrial fibrillation with RVR and a heart rate of 130. Chest x-ray showed cardiomegaly and pulmonary vascular congestion with alveolar edema, small left pleural effusion. CT of the abdomen was done after patient complained of abdominal pain, it showed a 3.7 cm fluid collection along with surgical changes in the right atrium, a small abscess cannot be excluded. Bilateral trace pleural effusions and bibasilar atelectasis, no intraabdominal abscess. CT of the chest then showed the same 3.7 cm fluid collection in the right atrium, bilateral trace effusion. The patient was found to have MRSA of the blood, so her dialysis catheter was removed and exchanged. She had a KARIN per Cardiology recommendation, which was . Wound Care was consulted for her sacral and left foot wounds, both of which were present on admission. Physical Therapy was consulted. Due to the MRSA bacteremia, the patient will transfer to [facility] for long-term antibiotics. She was initially on vancomycin and cefepime, which were switched to rifampin and daptomycin per Infectious Disease. Upon transfer, patient will get vancomycin and rifampin instead. Vital signs stable, patient afebrile. The patient understands discharge instructions and agrees to plan. Dictated by Deandra Waters, ANIMAL CRUELTY INVESTIGATOR MD MELLY Melendrez/ROSALINE /[id number]
[2018-09-16] MEDS: MONTELUKAST SODIUM 10 MG TAB PO SCH (20:45)
[2018-09-16] MEDS: EPOETIN ALFA 10000 UNIT/ML VIAL SC SCH (20:45)
[2018-09-16] MEDS: [UNRECOGNIZED DRUG - OTHER] IV SCH (20:45)
[2018-09-16] MEDS: SERTRALINE HCL 50 MG TAB PO SCH (20:45)
[2018-09-16] MEDS: HEPARIN IV SCH (20:45)
[2018-09-16] MEDS: SODIUM CHLORIDE IV SCH (20:45)
[2018-09-16] MEDS: ATORVASTATIN 40 MG TAB PO SCH (20:45)
--- NOTE | 2018-09-16 23:25 | NUR ---
Completed dialysis. 2.5L dialyzed. Pt tolerated well. VSS. Call bray within reach.
--- NOTE | 2018-09-16 23:45 | NUR ---
Report called to [facility] Gill RN.
[2018-09-17] VITALS: BP 135/67
[2018-09-17] MEDS: ALBUTEROL SULFATE HFA 8GM INHALATION AEROSOL INH PRN (01:00)
--- NOTE | 2018-09-17 01:31 | NUR ---
Pt discharged to [facility] via stretcher by EMS. VSS. Alert and orient. c/o mild chronic generalized pain. 20g IV LAC patent and intact. 2 Hemodialysis Access Ports to right internal jugular (RIJ) vein covered with gauze, one port access. Left heel and sacral wounds covered with Allevyn drsg. Belongings taken with Pt. Paperwork and instructions with Pt.
== END 2018-09-17 01:30 | DRG 314 ==
LOC: ER 17:30 → ERHOLD 22:36 → MED/SURG3 09-06 19:58
PROVIDERS: ADMIT Internal Medicine; ATTEND Internal Medicine
PROC: 5A1D70Z Performance of Urinary Filtration, Intermittent, Less than 6 Hours Per Day (ICD-10-PCS; 2018-09-07)
PROC: 5A1D70Z Performance of Urinary Filtration, Intermittent, Less than 6 Hours Per Day (ICD-10-PCS; 2018-09-09)
PROC: 0WP803Z Removal of Infusion Device from Chest Wall, Open Approach (ICD-10-PCS; 2018-09-09)
PROC: 02HV33Z Insertion of Infusion Device into Superior Vena Cava, Percutaneous Approach (ICD-10-PCS; principal; 2018-09-11)
PROC: 5A1D70Z Performance of Urinary Filtration, Intermittent, Less than 6 Hours Per Day (ICD-10-PCS; 2018-09-11)
PROC: 5A1D70Z Performance of Urinary Filtration, Intermittent, Less than 6 Hours Per Day (ICD-10-PCS; 2018-09-14)
PROC: 5A1D70Z Performance of Urinary Filtration, Intermittent, Less than 6 Hours Per Day (ICD-10-PCS; 2018-09-16)
DX: T80.211A Bloodstream infection due to central venous catheter, initial encounter (principal); L89.154 Pressure ulcer of sacral region, stage 4; N18.6 End stage renal disease; I50.31 Acute diastolic (congestive) heart failure; A41.02 Sepsis due to Methicillin resistant Staphylococcus aureus; I13.2 Hypertensive heart and chronic kidney disease with heart failure and with stage 5 chronic kidney disease, or end stage renal disease; Z68.41 Body mass index [BMI] 40.0-44.9, adult; L97.425 Non-pressure chronic ulcer of left heel and midfoot with muscle involvement without evidence of necrosis; E11.52 Type 2 diabetes mellitus with diabetic peripheral angiopathy with gangrene; I96 Gangrene, not elsewhere classified; A04.72 Enterocolitis due to Clostridium difficile, not specified as recurrent; I97.638 Postprocedural hematoma of a circulatory system organ or structure following other circulatory system procedure; E11.22 Type 2 diabetes mellitus with diabetic chronic kidney disease; Z99.2 Dependence on renal dialysis; Z79.4 Long term (current) use of insulin; Z79.01 Long term (current) use of anticoagulants; E66.01 Morbid (severe) obesity due to excess calories; Z95.2 Presence of prosthetic heart valve; I25.10 Atherosclerotic heart disease of native coronary artery without angina pectoris; E11.621 Type 2 diabetes mellitus with foot ulcer; L97.514 Non-pressure chronic ulcer of other part of right foot with necrosis of bone; L97.524 Non-pressure chronic ulcer of other part of left foot with necrosis of bone; I48.0 Paroxysmal atrial fibrillation; R79.1 Abnormal coagulation profile; D63.1 Anemia in chronic kidney disease; G47.33 Obstructive sleep apnea (adult) (pediatric)
CPT/HCPCS: 36415; 36556; 36589; 71045; 71250; 74176; 74470; 76937; 77001; 80048; 80053; 82550; 82553; 82948; 83036; 83605; 83735; 83880; 84100; 84145; 84443; 84484; 85025; 85610; 85730; 86140; 86704; 86706; 86707; 87040; 87070; 87071; 87081; 87186; 87205; 87340; 87350; 87400; 90962; 93005; 93306; 93307; 93312; 93325; 93926; 94660; 94664; 97139; 99284; C1769; J1644; J2001; J2270; J2370; J2405; J3370; J7030; J7050; Q4081